=== PATIENT | female | born 1970 | race Caucasian/White ===

== ENCOUNTER 2020-08-22 01:47 | Emergency (ER) | payer OTHER ==
[2020-08-22 01:54] VITALS: BP 125/83; PULSE 101; RESP 24
[2020-08-22 02:02] VITALS: TEMP 100.7
[2020-08-22] MEDS ORDERED: IBUPROFEN 600 MG TAB PO STA (02:13)
--- NOTE | 2020-08-22 02:20 | ED ---
General Adult HPI - General Chief complaint: Shortness of Breath Stated complaint: SOB, fever Time Seen by Provider: 08/22/20 01:55 Source: patient Mode of arrival: ambulatory Limitations: no limitations - History of Present Illness Initial comments: 50-year-old female patient with past medical history significant for hypertension, high cholesterol presents to the emergency department today for evaluation of cough and shortness of breath. Patient's mother was recently visiting from [place] ended up getting sick, going back home, and testing positive for COVID-19. Patient states that she started with a fever on Tuesday. States that since then she has had intermittent fever, diarrhea, and more recently started to cough. Patient states that today she has been more short of breath especially with activity. She is also reporting a "raw" feeling when she breathes. She also reports loss of taste and smell. She states that she was given prescription for azithromycin which she started today. She has been using a proair inhaler which does not seem to help. She was also given a prescription for tessalon perles. She reports fevers as high as 102F. She denies history of smoking or lung conditions. Patient denies any recent rash, abdominal pain, nausea, vomiting, constipation, back pain, numbness, tingling, dizziness, weakness, hematuria, dysuria, urinary urgency, urinary frequency, headache, visual changes, or any other complaints. - Related Data Allergies Allergy/AdvReac Type Severity Reaction Status Date / Time erythromycin base Allergy Unknown Verified 08/22/20 01:54 Childhood Review of Systems ROS Statement: Those systems with pertinent positive or pertinent negative responses have been documented in the HPI. ROS Other: All systems not noted in ROS Statement are negative. Past Medical History Past Medical History: Hyperlipidemia, Hypertension History of Any Multi-Drug Resistant Organisms: None Reported Past Surgical History: Cardiac Ablation, Cholecystectomy, Hysterectomy, Tonsillectomy Past Psychological History: Depression Smoking Status: Never smoker Past Alcohol Use History: Rare Past Drug Use History: None Reported General Exam Limitations: no limitations General appearance: alert, in no apparent distress, other (This is a well- developed, well-nourished adult female patient in no acute distress. Vital signs upon presentation are temperature 90.7F oral, pulse 101, respirations 24, blood pressure 125/83, pulse ox 97% on room air.) Eye exam: Present: normal appearance, PERRL, EOMI. Absent: scleral icterus, conjunctival injection, periorbital swelling ENT exam: Present: normal exam, normal oropharynx, mucous membranes moist Respiratory exam: Present: normal lung sounds bilaterally, respiratory distress (mild), other (Tachypnea. Able to speak full sentences, but obviously short of breath. ). Absent: wheezes, rales, rhonchi, stridor Cardiovascular Exam: Present: regular rate, normal rhythm, normal heart sounds. Absent: systolic murmur, diastolic murmur, rubs, gallop, clicks GI/Abdominal exam: Present: soft, normal bowel sounds. Absent: distended, tenderness, guarding, rebound, rigid Neurological exam: Present: alert, oriented X3, CN II-XII intact Psychiatric exam: Present: normal affect, normal mood Skin exam: Present: warm, dry, intact, normal color. Absent: rash Course Vital Signs 08/22/20 08/22/20 01:51 02:02 Temperature 98.3 F 100.7 F H Pulse Rate 101 H Respiratory 24 Rate Blood Pressure 125/83 O2 Sat by Pulse 97 Oximetry Medical Decision Making - Medical Decision Making 50-year-old female patient presents to the emergency department today for evaluation of fevers, shortness of breath, and cough. Patient has been exposed to COVID-19 and has other family members in the home or sick. Vital signs here do reveal elevated temperature at 100.7. Oxygen saturation is at 97% on room air. At rest she is comfortable and not having any shortness of breath. Chest x-ray is unremarkable. We did discuss likelihood of her having COVID-19. She is aware that she needs to quarantine. She is instructed to continue her home medications. We did discuss return parameters in detail. She is instructed to follow-up with her primary care physician for recheck in 1-2 days. She verbalizes understanding and agrees with this plan. - Radiology Data Radiology results: report reviewed, image reviewed Two-view x-ray of the chest is obtained. Report was reviewed in its entirety. Impression by Dr. Vasques shows no acute findings of the chest. Disposition Clinical Impression: COVID-19, Shortness of breath, Cough Disposition: HOME SELF-CARE Condition: Good Instructions (If sedation given, give patient instructions): Viral Syndrome ( ED), Acute Cough (ED) Additional Instructions: To new medications. Rest. Follow-up with your primary care physician for recheck in 1-2 days. Return to the emergency department immediately for any new, worsening, or concerning symptoms. Is patient prescribed a controlled substance at d/c from ED?: No Referrals: Valentino Coelho DO [Primary Care Provider] - 1-2 days Time of Disposition: 02:54
--- NOTE | 2020-08-22 02:48 | XR ---
EXAM: XR Chest, 1 View CLINICAL HISTORY: ITS.REASON XR Reason: Shortness of breath; Cough; COVID exposure TECHNIQUE: Frontal view of the chest. COMPARISON: No relevant prior studies available. FINDINGS: Lungs: Calcified granuloma right midlung. No airspace consolidation. Pleural space: Unremarkable. No pleural effusion or pneumothorax. Heart: Unremarkable. No cardiomegaly or pulmonary vascular congestion. Mediastinum: Unremarkable. Bones/joints: Unremarkable. IMPRESSION: No acute findings in the chest.
== END 2020-08-22 03:03 | disposition home or self-care (01) ==
LOC: EC 01:47
DX: U07.1 COVID-19 (principal); Z88.1 Allergy status to other antibiotic agents
CPT/HCPCS: 71045; 99285; U0003

== ENCOUNTER 2020-08-23 16:28 | Inpatient (IN) | payer OTHER ==
[2020-08-23] MEDS ORDERED: KETOROLAC 15 MG/ML 1 ML VIAL IVP STA (16:56)
[2020-08-23 17:44] LABS: HCT 43.8 % (34.0-46.0); HGB 14.7 gm/dL (11.4-16.0); MCH 28.5 pg (25.0-35.0); MCHC 33.5 g/dL (31.0-37.0); Mean Platelet Volume 6.3; Platelet Count 216 k/uL (150-450); RBC 5.15 m/uL (3.80-5.40); RDW 13.5 % (11.5-15.5); WBC 1.5 k/uL (3.8-10.6)
[2020-08-23 17:56] LABS: D-Dimer 0.29 mg/L FEU (<0.60); INR 0.9 (<1.2); Partial Thromboplastin Time 25.1 sec (22.0-30.0); Prothrombin Time 9.8 sec (9.0-12.0)
[2020-08-23 18:06] LABS: Band Neutrophils % 1 %; Eosinophils # (M) 0.02 k/uL (0-0.7); Lymphocytes # (M) 0.93 k/uL (1.0-4.8); Monocytes # (M) 0.24 k/uL (0-1.0); Neutrophils % (M) 20 %; Nucleated Red Blood Cells 0 /100 WBC (0-0); Total Cells Counted 100
--- NOTE | 2020-08-23 18:15 | ED ---
General Adult HPI - General Chief complaint: Upper Respiratory Infection Stated complaint: covid symptoms Time Seen by Provider: 08/23/20 16:30 Source: patient Mode of arrival: ambulatory Limitations: no limitations - History of Present Illness Initial comments: Patient is a 50-year-old female with past history of hypertension, hyperlipidemia and obesity who presents to the emergency department with reported generalized weakness, myalgias, fevers, cough and diarrhea. Patient reports that multiple of her family members have the same symptoms and they all tested positive for covid. Positive contacts include her and mother. She states that she has been tested multiple times and has come up negative. Patient was seen in the emergency room yesterday. Had Covid swabs and a chest x-ray performed. She has not received these results yet. She has not taken any Motrin or Tylenol at home for fever control. She is not using the inhaler that she was given she states it does not seem like it was helping her symptoms. Admits to nausea. No vomiting. Denies any chest pain. She does have a pulse ox monitor at home and reports that it has been falling into the 80s. Denies any underlying lung or cardiac issues. Admits to chills without recorded fever as she does not have a thermometer. Denies any abdominal pain. No lower extremity swelling. No other alleviating, precipitating or modifying factors - Related Data Home Medications Medication Instructions Recorded Confirmed Acetaminophen Tab [Tylenol Tab] 1,000 mg PO Q6HR PRN 08/23/20 08/23/20 Albuterol Inhaler [Ventolin Hfa 1 - 2 puff INHALATION RT-Q4H PRN 08/23/20 08/23/20 Inhaler] Azithromycin [Zithromax Z-pack (6 See Taper PO DAILY 08/23/20 08/23/20 tabs)] Benzonatate [Tessalon Perles] 100 mg PO TID PRN 08/23/20 08/23/20 Ezetimibe [Zetia] 10 mg PO HS 08/23/20 08/23/20 Losartan Potassium 100 mg PO HS 08/23/20 08/23/20 Multivitamins, Thera [Multivitamin 1 tab PO DAILY 08/23/20 08/23/20 (formulary)] Rosuvastatin [Crestor] 20 mg PO HS 08/23/20 08/23/20 hydroCHLOROthiazide 25 mg PO HS 08/23/20 08/23/20 Allergies Allergy/AdvReac Type Severity Reaction Status Date / Time erythromycin base Allergy Unknown Verified 08/23/20 20:27 Childhood Review of Systems ROS Statement: Those systems with pertinent positive or pertinent negative responses have been documented in the HPI. ROS Other: All systems not noted in ROS Statement are negative. Past Medical History Past Medical History: Hyperlipidemia, Hypertension History of Any Multi-Drug Resistant Organisms: None Reported Past Surgical History: Cardiac Ablation, Cholecystectomy, Hysterectomy, Tonsillectomy Past Psychological History: Depression Smoking Status: Never smoker Past Alcohol Use History: Rare Past Drug Use History: None Reported - Past Family History Mother Additional Family Medical History / Comment(s): and mother positive for CoVID General Exam Limitations: no limitations General appearance: alert, in no apparent distress Head exam: Present: atraumatic, normocephalic, normal inspection Eye exam: Present: normal appearance, PERRL, EOMI. Absent: scleral icterus, conjunctival injection, periorbital swelling ENT exam: Present: normal exam, mucous membranes moist Neck exam: Present: normal inspection. Absent: tenderness, meningismus, lymphadenopathy Respiratory exam: Present: normal lung sounds bilaterally, other (Tachypnea. slight conversational dyspnea). Absent: respiratory distress, wheezes, rales, rhonchi, stridor Cardiovascular Exam: Present: regular rate, normal rhythm, normal heart sounds. Absent: systolic murmur, diastolic murmur, rubs, gallop, clicks GI/Abdominal exam: Present: soft, normal bowel sounds. Absent: distended, tenderness, guarding, rebound, rigid Extremities exam: Present: normal inspection, full ROM, normal capillary refill. Absent: tenderness, pedal edema, joint swelling, calf tenderness Back exam: Present: normal inspection Neurological exam: Present: alert, oriented X3, CN II-XII intact Psychiatric exam: Present: normal affect, normal mood Skin exam: Present: warm, dry, intact, normal color. Absent: rash Course Vital Signs 08/23/20 08/23/20 08/23/20 16:30 17:33 18:50 Temperature 100.8 F H Pulse Rate 55 L 78 76 Respiratory 20 18 16 Rate Blood Pressure 113/71 122/75 108/76 O2 Sat by Pulse 95 96 97 Oximetry 08/23/20 08/23/20 20:07 21:09 Temperature 99.2 F Pulse Rate 70 78 Respiratory 14 16 Rate Blood Pressure 119/63 140/88 O2 Sat by Pulse 95 97 Oximetry EKG Findings - EKG Comments: EKG Findings:: EKG demonstrates a normal sinus rhythm with a ventricular rate of 76. PA interval 154. QRS 90. QTC 416. No acute ST segment elevations or depressions concerning for ischemic changes Medical Decision Making - Medical Decision Making Upon arrival the patient is placed into room 7. A thorough history and physical exam was performed. Patient is saturating 94% on room air. Patient's chart is reviewed. She was Covid positive yesterday. These results are discussed the patient. As she is reporting to worsening symptoms with low pulse ox readings at home I did recommend laboratory studies. Review of the labs demonstrates a white blood cell count 1.5. Absolute neutrophils is 0.3. Sodium 133. Potassium 3.3. LDH is 636. Reactive protein 13.2. Potassium is replaced. During her stay in the emergency room and she did desaturate down to 87%. She is placed on 2 L of oxygen and saturates 94% without increased worker breathing. I did discuss the diagnosis, differential treatment options. The patient will be admitted to the hospital at this time with Dr. Candelaria to consult. Discussed case with Dr. maritnez who accepted admission. Patient remained in stable condition awaiting a bed on the floor - Lab Data Result diagrams: 08/26/20 06:15 08/26/20 06:15 Lab Results 08/23/20 08/23/20 08/23/20 Range/Units 17:38 17:38 17:38 WBC 1.5 L (3.8-10.6) k/uL RBC 5.15 (3.80-5.40) m/uL Hgb 14.7 (11.4-16.0) gm/dL Hct 43.8 (34.0-46.0) % MCV 85.0 (80.0-100.0) fL MCH 28.5 (25.0-35.0) pg MCHC 33.5 (31.0-37.0) g/dL RDW 13.5 (11.5-15.5) % Plt Count 216 (150-450) k/uL Neutrophils % % Neutrophils % (Manual) 20 % Band Neuts % (Manual) 1 % Lymphocytes % % Lymphocytes % (Manual) 62 % Monocytes % % Monocytes % (Manual) 16 % Eosinophils % % Eosinophils % (Manual) 1 % Basophils % % Neutrophils # (1.3-7.7) k/uL Neutrophils # (Manual) 0.30 L* (1.3-7.7) k/uL Lymphocytes # (1.0-4.8) k/uL Lymphocytes # (Manual) 0.93 L (1.0-4.8) k/uL Monocytes # (0-1.0) k/uL Monocytes # (Manual) 0.24 (0-1.0) k/uL Eosinophils # (0-0.7) k/uL Eosinophils # (Manual) 0.02 (0-0.7) k/uL Basophils # (0-0.2) k/uL Nucleated RBCs 0 (0-0) /100 WBC Differential Comment Manual Slide Review Performed Large Platelets Polychromasia Anisocytosis (manual) PT 9.8 (9.0-12.0) sec INR 0.9 (<1.2) APTT 25.1 (22.0-30.0) sec D-Dimer 0.29 (<0.60) mg/L FEU Sodium 133 L (137-145) mmol/L Potassium 3.3 L (3.5-5.1) mmol/L Chloride 95 L (98-107) mmol/L Carbon Dioxide 28 (22-30) mmol/L Anion Gap 10 mmol/L BUN 24 H (7-17) mg/dL Creatinine 0.88 (0.52-1.04) mg/dL Est GFR (CKD-EPI)AfAm 89 (>60 ml/min/1.73 sqM) Est GFR (CKD-EPI)NonAf 77 (>60 ml/min/1.73 sqM) BUN/Creatinine Ratio (12.00-20.00) Ratio Glucose 134 H (74-99) mg/dL Plasma Lactic Acid Pablo (0.7-2.0) mmol/L Calcium 8.8 (8.4-10.2) mg/dL Magnesium 2.0 (1.6-2.3) mg/dL Ferritin 611.1 H (10.0-291.0) ng/mL Total Bilirubin 0.6 (0.2-1.3) mg/dL AST 59 H (14-36) U/L ALT 53 H (4-34) U/L Alkaline Phosphatase 98 (38-126) U/L Lactate Dehydrogenase 636 H (313-618) U/L Creatine Kinase (26-186) U/L Troponin I (0.000-0.034) ng/mL C-Reactive Protein 13.2 H (<10.0) mg/L Total Protein 7.5 (6.3-8.2) g/dL Albumin 4.2 (3.5-5.0) g/dL Globulin (1.6-3.3) g/dL Albumin/Globulin Ratio (1.60-3.17) g/dL Procalcitonin (0.02-0.09) ng/mL Urine Color Urine Appearance (Clear) Urine pH (5.0-8.0) Ur Specific [place] (1.001-1.035) Urine Protein (Negative) Urine Glucose (UA) (Negative) Urine Ketones (Negative) Urine Blood (Negative) Urine Nitrite (Negative) Urine Bilirubin (Negative) Urine Urobilinogen (<2.0) mg/dL Ur Leukocyte Esterase (Negative) 08/23/20 08/23/20 08/24/20 Range/Units 17:38 17:38 05:46 WBC 0.9 L* (3.8-10.6) k/uL RBC 4.74 (3.80-5.40) m/uL Hgb 13.4 (11.4-16.0) gm/dL Hct 40.7 (34.0-46.0) % MCV 85.7 (80.0-100.0) fL MCH 28.2 (25.0-35.0) pg MCHC 32.9 (31.0-37.0) g/dL RDW 13.5 (11.5-15.5) % Plt Count 194 (150-450) k/uL Neutrophils % % Neutrophils % (Manual) % Band Neuts % (Manual) % Lymphocytes % % Lymphocytes % (Manual) % Monocytes % % Monocytes % (Manual) % Eosinophils % % Eosinophils % (Manual) % Basophils % % Neutrophils # (1.3-7.7) k/uL Neutrophils # (Manual) (1.3-7.7) k/uL Lymphocytes # (1.0-4.8) k/uL Lymphocytes # (Manual) (1.0-4.8) k/uL Monocytes # (0-1.0) k/uL Monocytes # (Manual) (0-1.0) k/uL Eosinophils # (0-0.7) k/uL Eosinophils # (Manual) (0-0.7) k/uL Basophils # (0-0.2) k/uL Nucleated RBCs (0-0) /100 WBC Differential Comment Manual Slide Review Performed Large Platelets Present Polychromasia Present Anisocytosis (manual) Present PT (9.0-12.0) sec INR (<1.2) APTT (22.0-30.0) sec D-Dimer (<0.60) mg/L FEU Sodium (137-145) mmol/L Potassium (3.5-5.1) mmol/L Chloride (98-107) mmol/L Carbon Dioxide (22-30) mmol/L Anion Gap mmol/L BUN (7-17) mg/dL Creatinine (0.52-1.04) mg/dL Est GFR (CKD-EPI)AfAm (>60 ml/min/1.73 sqM) Est GFR (CKD-EPI)NonAf (>60 ml/min/1.73 sqM) BUN/Creatinine Ratio (12.00-20.00) Ratio Glucose (74-99) mg/dL Plasma Lactic Acid Pablo 1.0 (0.7-2.0) mmol/L Calcium (8.4-10.2) mg/dL Magnesium (1.6-2.3) mg/dL Ferritin (10.0-291.0) ng/mL Total Bilirubin (0.2-1.3) mg/dL AST (14-36) U/L ALT (4-34) U/L Alkaline Phosphatase (38-126) U/L Lactate Dehydrogenase (313-618) U/L Creatine Kinase (26-186) U/L Troponin I (0.000-0.034) ng/mL C-Reactive Protein (<10.0) mg/L Total Protein (6.3-8.2) g/dL Albumin (3.5-5.0) g/dL Globulin (1.6-3.3) g/dL Albumin/Globulin Ratio (1.60-3.17) g/dL Procalcitonin 0.05 (0.02-0.09) ng/mL Urine Color Urine Appearance (Clear) Urine pH (5.0-8.0) Ur Specific [place] (1.001-1.035) Urine Protein (Negative) Urine Glucose (UA) (Negative) Urine Ketones (Negative) Urine Blood (Negative) Urine Nitrite (Negative) Urine Bilirubin (Negative) Urine Urobilinogen (<2.0) mg/dL Ur Leukocyte Esterase (Negative) 08/24/20 08/24/20 08/24/20 Range/Units 05:46 05:46 18:07 WBC (3.8-10.6) k/uL RBC (3.80-5.40) m/uL Hgb (11.4-16.0) gm/dL Hct (34.0-46.0) % MCV (80.0-100.0) fL MCH (25.0-35.0) pg MCHC (31.0-37.0) g/dL RDW (11.5-15.5) % Plt Count (150-450) k/uL Neutrophils % % Neutrophils % (Manual) % Band Neuts % (Manual) % Lymphocytes % % Lymphocytes % (Manual) % Monocytes % % Monocytes % (Manual) % Eosinophils % % Eosinophils % (Manual) % Basophils % % Neutrophils # (1.3-7.7) k/uL Neutrophils # (Manual) (1.3-7.7) k/uL Lymphocytes # (1.0-4.8) k/uL Lymphocytes # (Manual) (1.0-4.8) k/uL Monocytes # (0-1.0) k/uL Monocytes # (Manual) (0-1.0) k/uL Eosinophils # (0-0.7) k/uL Eosinophils # (Manual) (0-0.7) k/uL Basophils # (0-0.2) k/uL Nucleated RBCs (0-0) /100 WBC Differential Comment Manual Slide Review Large Platelets Polychromasia Anisocytosis (manual) PT (9.0-12.0) sec INR (<1.2) APTT (22.0-30.0) sec D-Dimer (<0.60) mg/L FEU Sodium 135 (137-145) mmol/L Potassium 3.9 (3.5-5.1) mmol/L Chloride 98 (98-107) mmol/L Carbon Dioxide 28.6 (22-30) mmol/L Anion Gap 8.40 mmol/L BUN 25.0 (7-17) mg/dL Creatinine 0.9 (0.52-1.04) mg/dL Est GFR (CKD-EPI)AfAm 86.4 (>60 ml/min/1.73 sqM) Est GFR (CKD-EPI)NonAf 74.6 (>60 ml/min/1.73 sqM) BUN/Creatinine Ratio 27.78 H (12.00-20.00) Ratio Glucose 149 H (74-99) mg/dL Plasma Lactic Acid Pablo (0.7-2.0) mmol/L Calcium 8.3 L (8.4-10.2) mg/dL Magnesium (1.6-2.3) mg/dL Ferritin (10.0-291.0) ng/mL Total Bilirubin (0.2-1.3) mg/dL AST (14-36) U/L ALT (4-34) U/L Alkaline Phosphatase (38-126) U/L Lactate Dehydrogenase (313-618) U/L Creatine Kinase 111 (26-186) U/L Troponin I (0.000-0.034) ng/mL C-Reactive Protein (<10.0) mg/L Total Protein (6.3-8.2) g/dL Albumin (3.5-5.0) g/dL Globulin (1.6-3.3) g/dL Albumin/Globulin Ratio (1.60-3.17) g/dL Procalcitonin (0.02-0.09) ng/mL Urine Color Yellow Urine Appearance Clear (Clear) Urine pH 6.0 (5.0-8.0) Ur Specific [place] 1.025 (1.001-1.035) Urine Protein Trace H (Negative) Urine Glucose (UA) Negative (Negative) Urine Ketones Trace H (Negative) Urine Blood Negative (Negative) Urine Nitrite Negative (Negative) Urine Bilirubin Negative (Negative) Urine Urobilinogen <2.0 (<2.0) mg/dL Ur Leukocyte Esterase Negative (Negative) 08/25/20 08/25/20 08/25/20 Range/Units 07:03 07:03 07:03 WBC 3.4 L (3.8-10.6) k/uL RBC 4.70 (3.80-5.40) m/uL Hgb 13.4 (11.4-16.0) gm/dL Hct 41.1 (34.0-46.0) % MCV 87.4 (80.0-100.0) fL MCH 28.4 (25.0-35.0) pg MCHC 32.5 (31.0-37.0) g/dL RDW 13.4 (11.5-15.5) % Plt Count 218 (150-450) k/uL Neutrophils % 59 % Neutrophils % (Manual) % Band Neuts % (Manual) % Lymphocytes % 24 % Lymphocytes % (Manual) % Monocytes % 13 % Monocytes % (Manual) % Eosinophils % 0 % Eosinophils % (Manual) % Basophils % 0 % Neutrophils # 2.0 (1.3-7.7) k/uL Neutrophils # (Manual) (1.3-7.7) k/uL Lymphocytes # 0.8 L (1.0-4.8) k/uL Lymphocytes # (Manual) (1.0-4.8) k/uL Monocytes # 0.4 (0-1.0) k/uL Monocytes # (Manual) (0-1.0) k/uL Eosinophils # 0.0 (0-0.7) k/uL Eosinophils # (Manual) (0-0.7) k/uL Basophils # 0.0 (0-0.2) k/uL Nucleated RBCs (0-0) /100 WBC Differential Comment Manual Slide Review Large Platelets Polychromasia Anisocytosis (manual) PT (9.0-12.0) sec INR (<1.2) APTT (22.0-30.0) sec D-Dimer (<0.60) mg/L FEU Sodium 141 (137-145) mmol/L Potassium 3.9 (3.5-5.1) mmol/L Chloride 105 (98-107) mmol/L Carbon Dioxide 27.9 (22-30) mmol/L Anion Gap 8.10 mmol/L BUN 20.0 (7-17) mg/dL Creatinine 0.8 (0.52-1.04) mg/dL Est GFR (CKD-EPI)AfAm 99.6 (>60 ml/min/1.73 sqM) Est GFR (CKD-EPI)NonAf 86.0 (>60 ml/min/1.73 sqM) BUN/Creatinine Ratio 25.00 H (12.00-20.00) Ratio Glucose 116 H (74-99) mg/dL Plasma Lactic Acid Pablo (0.7-2.0) mmol/L Calcium 8.4 L (8.4-10.2) mg/dL Magnesium 1.9 (1.6-2.3) mg/dL Ferritin (10.0-291.0) ng/mL Total Bilirubin 0.3 (0.2-1.3) mg/dL AST 51 H (14-36) U/L ALT 44 (4-34) U/L Alkaline Phosphatase 78 (38-126) U/L Lactate Dehydrogenase (313-618) U/L Creatine Kinase (26-186) U/L Troponin I <0.012 (0.000-0.034) ng/mL C-Reactive Protein (<10.0) mg/L Total Protein 6.2 (6.3-8.2) g/dL Albumin 3.80 (3.5-5.0) g/dL Globulin 2.4 (1.6-3.3) g/dL Albumin/Globulin Ratio 1.58 L (1.60-3.17) g/dL Procalcitonin (0.02-0.09) ng/mL Urine Color Urine Appearance (Clear) Urine pH (5.0-8.0) Ur Specific [place] (1.001-1.035) Urine Protein (Negative) Urine Glucose (UA) (Negative) Urine Ketones (Negative) Urine Blood (Negative) Urine Nitrite (Negative) Urine Bilirubin (Negative) Urine Urobilinogen (<2.0) mg/dL Ur Leukocyte Esterase (Negative) Disposition Clinical Impression: COVID-19, Shortness of breath, Cough Disposition: ADMITTED IP TO THIS [facility] Condition: Serious Is patient prescribed a controlled substance at d/c from ED?: No Decision to Admit Reason: Admit from EC Decision Date: 08/23/20 Decision Time: 19:14
[2020-08-23 18:52] LABS: Albumin 4.2 g/dL (3.5-5.0); C Reactive Protein 13.2 mg/L (<10.0); Calcium 8.8 mg/dL (8.4-10.2); Potassium 3.3 mmol/L (3.5-5.1); Total Bilirubin 0.6 mg/dL (0.2-1.3); Total Protein 7.5 g/dL (6.3-8.2)
[2020-08-23] MEDS ORDERED: ALBUTEROL HFA INHALER INHALATION PRN (19:13)
[2020-08-23] MEDS ORDERED: NALOXONE 0.4 MG/ML 1 ML VIAL IV PRN (19:14)
[2020-08-23] MEDS ORDERED: POTASSIUM CHLORIDE ER 20 MEQ TAB.ER PO STA (20:00)
[2020-08-23] MEDS ORDERED: DEXAMETHASONE SOD PHOSPHATE 4 MG/ML 1 ML VIAL IV STA ×2 (21:55)
[2020-08-23] MEDS: SODIUM CHLORIDE 0.9% 1,000 ML IV SCH (22:52)
[2020-08-23 22:53] LABS: Ferritin 611.1 ng/mL (10.0-291.0)
[2020-08-24] MEDS: ACETAMINOPHEN TAB 325 MG TAB PO PRN (05:24)
[2020-08-24] MEDS: SODIUM CHLORIDE 0.9% 1,000 ML IV SCH ×2 (05:28→17:35)
[2020-08-24 06:36] LABS: HCT 40.7 % (34.0-46.0); HGB 13.4 gm/dL (11.4-16.0); MCH 28.2 pg (25.0-35.0); MCHC 32.9 g/dL (31.0-37.0); MCV 85.7 fL (80.0-100.0); Mean Platelet Volume 6.8; Platelet Count 194 k/uL (150-450); RBC 4.74 m/uL (3.80-5.40); RDW 13.5 % (11.5-15.5)
[2020-08-24 06:45] LABS: WBC 0.9 k/uL (3.8-10.6)
[2020-08-24 07:05] LABS: Anisocytosis (M) Present
[2020-08-24 07:08] LABS: Large Platelets Present
[2020-08-24 07:12] LABS: Polychromasia Present
[2020-08-24 09:32] LABS: African American GFR (CKD) 86.4 (60.0-200.0); Anion Gap 8.4 mmol/L (4.00-12.00); BUN/Creat Ratio 27.78 Ratio (12.00-20.00); Calcium 8.3 mg/dL (8.7-10.3); Carbon Dioxide 28.6 mmol/L (21.6-31.8); Non-African American GFR(CKD) 74.6 (60.0-200.0); Potassium 3.9 mmol/L (3.5-5.5)
[2020-08-24] MEDS: DEXAMETHASONE SOD PHOSPHATE 10 MG/ML 1 ML VIAL IV SCH (11:01)
--- NOTE | 2020-08-24 11:20 | P.CNPUL ---
History of Present Illness Consult date: 08/24/20 Requesting physician: Flora Felipe Reason for consult: dyspnea, cough Chief complaint: Fever, generalized weakness, diarrhea, cough History of present illness: This is a pleasant 50-year-old female patient with a known history of hypertension, hyperlipidemia, obesity. She's been having issues with generalized weakness, myalgias, fever, cough and diarrhea. She been seen in the emergency room on the and subsequently discharged. Both her and mother positive for CoVID 19. Previous test results on her have been negative. She presented to the emergency room again yesterday with similar symptoms or no improvement. She is now found to be Covid 19 positive. T-max 100.8. She is maintaining O2 saturations in the 90s on room air. Chest x-ray reveals no acute abnormalities. White count 10.5. Hemoglobin 14.7. Lymphocytes 0.93. D-dimer 0.29. Sodium 133. Potassium 3.5. Creatinine 0.8. Lactic 1.0. Ferritin 611. AST 59. ALT 53. LDH 636. C-reactive protein 13.2. Pro-calcitonin 0.05. She is seen today in consultation on the regular medical floor. She is currently resting in bed. She continues to have generalized fatigue and weakness. She has a loose nonproductive cough. Currently afebrile. White count 0.9. Hemoglobin 13.4. Sodium 135. Potassium 3.9. Creatinine 0.9. She is currently on Ventolin HFA. Tylenol as needed. She did receive Decadron IV 6 mg yesterday. 0.9 normal saline at 100 ML's per hour. Infectious disease has been consulted. Review of Systems REVIEW OF SYSTEMS: CONSTITUTIONAL: Fatigue, weakness. Denies any recent significant weight loss or weight gain. EYES: Denies change in vision. EARS, NOSE, MOUTH, THROAT: Denies headaches, denies sore throat. CARDIOVASCULAR: Denies chest pain, palpitations or syncopal episodes. RESPIRATORY: Positive for shortness of breath, cough, congestion no hemoptysis. GASTROINTESTINAL: Denies change in appetite, positive for abdominal pain, diarrhea GENITOURINARY: Denies hematuria, denies infections. MUSKULOSKELETAL: Positive for pain, denies swelling. INTEGUMENTARY: Denies rash, denies eczema. NEUROLOGICAL: Denies recent memory loss, no recent seizure activity. PSYCHIATRIC: Denies anxiety, denies depression. HEMATOLOGIC/LYMPHATIC: Denies anemia, denies enlarged lymph nodes. Past Medical History Past Medical History: Hyperlipidemia, Hypertension Additional Past Medical History / Comment(s): had a cardiac ablation for v tach History of Any Multi-Drug Resistant Organisms: None Reported Past Surgical History: Cardiac Ablation, Cholecystectomy, Hysterectomy, Tonsillectomy Past Anesthesia/Blood Transfusion Reactions: No Reported Reaction Past Psychological History: Depression Smoking Status: Never smoker Past Alcohol Use History: Rare Past Drug Use History: None Reported - Past Family History Mother Additional Family Medical History / Comment(s): and mother positive for CoVID Medications and Allergies Home Medications Medication Instructions Recorded Confirmed Type Acetaminophen Tab [Tylenol Tab] 1,000 mg PO Q6HR PRN 08/23/20 08/23/20 History Albuterol Inhaler [Ventolin Hfa 1 - 2 puff INHALATION RT-Q4H PRN 08/23/20 08/23/20 History Inhaler] Azithromycin [Zithromax Z-pack (6 See Taper PO DAILY 08/23/20 08/23/20 History tabs)] Benzonatate [Tessalon Perles] 100 mg PO TID PRN 08/23/20 08/23/20 History Ezetimibe [Zetia] 10 mg PO HS 08/23/20 08/23/20 History Losartan Potassium 100 mg PO HS 08/23/20 08/23/20 History Multivitamins, Thera [Multivitamin 1 tab PO DAILY 08/23/20 08/23/20 History (formulary)] Rosuvastatin [Crestor] 20 mg PO HS 08/23/20 08/23/20 History hydroCHLOROthiazide 25 mg PO HS 08/23/20 08/23/20 History Allergies Allergy/AdvReac Type Severity Reaction Status Date / Time erythromycin base Allergy Unknown Verified 08/23/20 20:27 Childhood Physical Exam Vitals: Vital Signs Temp Pulse Pulse Resp BP BP Pulse Ox 08/24/20 07:00 98.3 F 77 18 98/61 96 08/24/20 03:41 16 08/24/20 02:45 99.6 F 73 16 115/60 95 08/24/20 01:20 16 08/23/20 22:52 16 08/23/20 21:33 98.6 F 71 16 103/56 98 08/23/20 21:09 99.2 F 78 16 140/88 97 08/23/20 20:07 70 14 119/63 95 08/23/20 18:50 76 16 108/76 97 08/23/20 17:33 78 18 122/75 96 08/23/20 16:30 100.8 F H 55 L 20 113/71 95 Intake and Output 08/23/20 08/24/20 08/24/20 22:59 06:59 14:59 Other: Voiding Method Toilet Toilet # Voids 2 # Bowel Movements 1 Weight 136.078 kg GENERAL EXAM: Alert, pleasant 50-year-old female patient, obese, fatigued, weak, fairly comfortable in no apparent distress. HEAD: Normocephalic. EYES: Normal reaction of pupils, equal size. NOSE: Clear with pink turbinates. THROAT: No erythema or exudates. NECK: No masses, no JVD. CHEST: No chest wall deformity. LUNGS: Equal air entry with no crackles, wheeze, rhonchi or dullness. CVS: S1 and S2 normal with no audible murmur, regular rhythm. ABDOMEN: No hepatosplenomegaly, normal bowel sounds, no guarding or rigidity. SPINE: No scoliosis or deformity SKIN: No rashes CENTRAL NERVOUS SYSTEM: No focal deficits, tone is normal in all 4 extremities. EXTREMITIES: There is no peripheral edema. No clubbing, no cyanosis. Peripheral pulses are intact. Results - Laboratory Findings CBC and BMP: 08/24/20 05:46 08/24/20 05:46 PT/INR, D-dimer PT 9.8 sec (9.0-12.0) 08/23/20 17:38 INR 0.9 (<1.2) 08/23/20 17:38 D-Dimer 0.29 mg/L FEU (<0.60) 08/23/20 17:38 Abnormal lab findings: Abnormal Labs 08/23/20 08/23/20 08/24/20 17:38 17:38 05:46 WBC 1.5 L 0.9 L* Neutrophils # (Manual) 0.30 L* Lymphocytes # (Manual) 0.93 L Sodium 133 L Potassium 3.3 L Chloride 95 L BUN 24 H BUN/Creatinine Ratio Glucose 134 H Calcium Ferritin 611.1 H AST 59 H ALT 53 H Lactate Dehydrogenase 636 H C-Reactive Protein 13.2 H 08/24/20 05:46 WBC Neutrophils # (Manual) Lymphocytes # (Manual) Sodium Potassium Chloride BUN BUN/Creatinine Ratio 27.78 H Glucose 149 H Calcium 8.3 L Ferritin AST ALT Lactate Dehydrogenase C-Reactive Protein - Diagnostic Findings Chest x-ray: image reviewed (No acute pulmonary process) Assessment and Plan Assessment: 1 Acute CoVID 19 infection with generalized weakness, fatigue, shortness of b reath, cough, diarrhea 2 Febrile illness secondary to above 3 Elevated inflammatory markers secondary to above 4 Obesity 5 Hypertension 6 Hyperlipidemia 7 History of depression 8 History of cardiac ablation Plan: The patient was seen and evaluated by Dr. Burton Chest x-ray and labs reviewed Continue dexamethasone 6 mg IV daily ID consult pending We'll continue to follow and make further recommendations based on her clinical status I, the cosigning physician, performed a history & physical examination of the patient. Lungs sounds are clear. Maintaining good O2 saturations in the 90s on room air. I discussed the assessment and plan of care with my nurse practition er, Malka Winston. I attest to the above consultation as dictated by her. Time with Patient: Greater than 30
[2020-08-24] MEDS ORDERED: BENZONATATE 100 MG CAP PO PRN (11:40)
[2020-08-24] MEDS ORDERED: Potassium Replacement Protocol 1 EACH MISC MISCELLANE PRN (11:42)
[2020-08-24] MEDS ORDERED: Magnesium Replacement Protocol 1 EACH MISC MISCELLANE PRN (11:42)
[2020-08-24] MEDS: ALBUTEROL HFA INHALER INHALATION SCH ×3 (12:29→20:14)
--- NOTE | 2020-08-24 12:37 | XR ---
EXAMINATION TYPE: XR chest 1V portable DATE OF EXAM: 08/24/2020 Comparison: 08/22/2020 Clinical History: 50-year-old female pneumonia Findings: Heart borderline enlarged. Low lung volumes and cardiovascular markings. Patchy interstitial opacitie s especially in the periphery of the lungs. No pleural effusion. Impression: Unable to exclude patchy peripheral interstitial infiltrates which may be seen with atypical pneumoni as.
--- NOTE | 2020-08-24 12:41 | CT ---
EXAMINATION TYPE: CT chest wo con DATE OF EXAM: 08/24/2020 COMPARISON: Radiograph same day HISTORY: 50-year-old female Shortness of breath and cough. +COVID test TECHNIQUE: Contiguous axial scanning of the chest without IV contrast. Coronal and sagittal reconstru ctions performed. CT DLP: 616.6 mGycm Automated exposure control for dose reduction was used. FINDINGS: Heart normal size without pericardial effusion. Mild proximal LAD coronary artery calcifications are present. Aorta normal caliber with a conventional vessel branching anatomy. Scattered nonenlarged mediastinal lymph nodes are present. Patchy peripheral and peribronchial vascular groundglass opacity. No jeronimo consolidative change. Calcified granuloma periphery of the right mid lung. Tiny hiatal hernia. Couple calcified granulomas within the seen. Cholecystectomy clips. Bones: No osseous destructive process. IMPRESSION: PATCHY PERIPHERAL AND PERIBRONCHOVASCULAR GROUNDGLASS CHANGES WOULD BE COMPATIBLE WITH COVID PNEUMONI A IN THE APPROPRIATE CLINICAL CONTEXT.
[2020-08-24] MEDS: ENOXAPARIN 40 MG/0.4 ML SYRINGE SQ SCH ×2 (13:32→20:19)
[2020-08-24] MEDS: FAMOTIDINE 20 MG TAB PO SCH ×2 (13:33→20:20)
[2020-08-24] MEDS ORDERED: REMDESIVIR (EUA) 200 MG in SODIUM CHLORIDE 0.9% 250 ML IVPB ONE (16:00)
[2020-08-24 18:33] LABS: Appearance,Urine Clear (Clear); Bilirubin,Urine Negative (Negative); Blood,Urine Negative (Negative); Color,Urine Yellow; Glucose,Urine (UA) Negative (Negative); Ketones,Urine Trace (Negative); Leukocyte Esterase,Urine Negative (Negative); Nitrite,Urine Negative (Negative); Protein,Urine Trace (Negative); Specific Gravity,Urine 1.025 (1.001-1.035); Urobilinogen,Urine <2.0 mg/dL (<2.0)
[2020-08-24] MEDS: ZINC SULFATE 220 MG CAP PO SCH (20:20)
[2020-08-24] MEDS: LOSARTAN 50 MG TAB PO SCH (20:20)
[2020-08-24] MEDS ORDERED: MELATONIN 5 MG TABLET PO PRN (20:29)
--- NOTE | 2020-08-24 23:31 | P.CONS ---
History of Present Illness - Reason for Consult Consult date: 08/24/20 Pneumonia Requesting physician: Flora Felipe - Chief Complaint Shortness of breath and cough x one week - History of Present Illness Patient is 50-year-old female with the past medical history significant for hypertension hyperlipidemia presenting to the ER at [facility] with generalized weakness myalgias a fever and cough symptom has been going on for about a week the patient has been did have similar symptoms and tested positive for covid, patient started having increasing shortness of breath that has been getting worse for the last 3 days also complaining of cough which is be motivated density mostly dry in nature no nausea no vomiting no abdominal pain did have diarrhea with multiple loose stools denies having any blood or mucus in the stool and patient did have pulse ox at home and she was washing her O2 sats and her O2 sats were done in the 80s that concerned her and the patient presented to the ER on arrival to the emergency room the patient did have fever 100.8F patient noticed to be leukopenic with a white count of 1.5 ye sterday and 0.9 today, patient did have elevated liver enzymes elevated CRP and normal procalcitonin , patient did have chest x-ray followed by CT of the chest which was H peripheral and peribronchial groundglass changes patient did have a Covid testing admitted to the hospital infectious disease was consulted for further management Review of Systems Positive point has been mentioned in the HPI rest of the systems are negative Past Medical History Past Medical History: Hyperlipidemia, Hypertension Additional Past Medical History / Comment(s): had a cardiac ablation for v tach History of Any Multi-Drug Resistant Organisms: None Reported Past Surgical History: Cardiac Ablation, Cholecystectomy, Hysterectomy, Tonsillectomy Past Anesthesia/Blood Transfusion Reactions: No Reported Reaction Past Psychological History: Depression Smoking Status: Never smoker Past Alcohol Use History: Rare Past Drug Use History: None Reported - Past Family History Mother Additional Family Medical History / Comment(s): and mother positive for CoVID Medications and Allergies Home Medications Medication Instructions Recorded Confirmed Type Acetaminophen Tab [Tylenol Tab] 1,000 mg PO Q6HR PRN 08/23/20 08/23/20 History Albuterol Inhaler [Ventolin Hfa 1 - 2 puff INHALATION RT-Q4H PRN 08/23/20 08/23/20 History Inhaler] Azithromycin [Zithromax Z-pack (6 See Taper PO DAILY 08/23/20 08/23/20 History tabs)] Benzonatate [Tessalon Perles] 100 mg PO TID PRN 08/23/20 08/23/20 History Ezetimibe [Zetia] 10 mg PO HS 08/23/20 08/23/20 History Losartan Potassium 100 mg PO HS 08/23/20 08/23/20 History Multivitamins, Thera [Multivitamin 1 tab PO DAILY 08/23/20 08/23/20 History (formulary)] Rosuvastatin [Crestor] 20 mg PO HS 08/23/20 08/23/20 History hydroCHLOROthiazide 25 mg PO HS 08/23/20 08/23/20 History Allergies Allergy/AdvReac Type Severity Reaction Status Date / Time erythromycin base Allergy Unknown Verified 08/23/20 20:27 Childhood Physical Exam Vitals: Vital Signs Temp Pulse Pulse Resp BP BP Pulse Ox 08/24/20 07:00 98.3 F 77 18 98/61 96 08/24/20 03:41 16 08/24/20 02:45 99.6 F 73 16 115/60 95 08/24/20 01:20 16 08/23/20 22:52 16 08/23/20 21:33 98.6 F 71 16 103/56 98 08/23/20 21:09 99.2 F 78 16 140/88 97 08/23/20 20:07 70 14 119/63 95 08/23/20 18:50 76 16 108/76 97 08/23/20 17:33 78 18 122/75 96 08/23/20 16:30 100.8 F H 55 L 20 113/71 95 Intake and Output 08/24/20 08/24/20 08/24/20 06:59 14:59 22:59 Other: Voiding Method Toilet # Voids 2 # Bowel Movements 1 GENERAL DESCRIPTION: Middle-aged female lying in bed, no distress. No tachypnea or accessory muscle of respiration use. HEENT: Shows Pallor , no scleral icterus. Oral mucous membrane is dry. No pharyngeal erythema or thrush NECK: Trachea central, no thyromegaly. LUNGS: Unlabored breathing. Decreased intensity of breath sounds. No wheeze or crackle. HEART: S1, S2, regular rate and rhythm. No loud murmur ABDOMEN: Soft, no tenderness , guarding or rigidity, no organomegaly EXTREMITIES: No edema of feet. SKIN: No rash, no masses palpable. NEUROLOGICAL: The patient is awake, alert, oriented x3, mood and affect normal. Results CBC & Chem 7: 08/24/20 05:46 08/24/20 05:46 Labs: Abnormal Lab Results - Last 24 Hours (Table) 08/23/20 08/23/20 08/24/20 Range/Units 17:38 17:38 05:46 WBC 1.5 L 0.9 L* (3.8-10.6) k/uL Neutrophils # (Manual) 0.30 L* (1.3-7.7) k/uL Lymphocytes # (Manual) 0.93 L (1.0-4.8) k/uL Sodium 133 L (137-145) mmol/L Potassium 3.3 L (3.5-5.1) mmol/L Chloride 95 L (98-107) mmol/L BUN 24 H (7-17) mg/dL BUN/Creatinine Ratio (12.00-20.00) Ratio Glucose 134 H (74-99) mg/dL Calcium (8.7-10.3) mg/dL Ferritin 611.1 H (10.0-291.0) ng/mL AST 59 H (14-36) U/L ALT 53 H (4-34) U/L Lactate Dehydrogenase 636 H (313-618) U/L C-Reactive Protein 13.2 H (<10.0) mg/L 08/24/20 Range/Units 05:46 WBC (3.8-10.6) k/uL Neutrophils # (Manual) (1.3-7.7) k/uL Lymphocytes # (Manual) (1.0-4.8) k/uL Sodium (137-145) mmol/L Potassium (3.5-5.1) mmol/L Chloride (98-107) mmol/L BUN (7-17) mg/dL BUN/Creatinine Ratio 27.78 H (12.00-20.00) Ratio Glucose 149 H (74-99) mg/dL Calcium 8.3 L (8.7-10.3) mg/dL Ferritin (10.0-291.0) ng/mL AST (14-36) U/L ALT (4-34) U/L Lactate Dehydrogenase (313-618) U/L C-Reactive Protein (<10.0) mg/L Assessment and Plan Assessment: 1-patient presented to hospital with increasing shortness of breath or cough fever and myalgias has been tested positive for Covid In this patient who did have fever and hypoxemia elevated liver enzymes and evidence of groundglass opacities likely representing acute Covid 19 infection (1) Pneumonia due to COVID-19 virus Current Visit: Yes Status: Acute Code(s): U07.1 - COVID-19; J12.89 - OTHER VIRAL PNEUMONIA SNOMED Code(s): 838793288444123395 (2) COVID-19 Current Visit: Yes Status: Acute Code(s): U07.1 - COVID-19 SNOMED Code(s): 213212192 Plan: 1. Patient qualify for Remdisivir on the basis of clinical finding and hypoxemia this was discussed with the pharmacist and the patient was started 2 -patient be continued on dexamethasone Lovenox and zinc sulfate 3- droplet isolation and respiratory support We will follow on clinical condition and cultures to further adjust medication if needed Thank you for this consultation will follow this patient with you
--- NOTE | 2020-08-25 00:55 | HP ---
HISTORY AND PHYSICAL DATE OF SERVICE: 08/24/2020 CHIEF COMPLAINT: Shortness of breath and cough. HISTORY OF PRESENT ILLNESS: This 50-year-old woman who recently moved to the area from [place] with history of hypertension, hyperlipidemia, history of cardiac ablation for ventricular tachycardia, history of cholecystectomy, depression being followed by Dr. Coelho in the outpatient setting was complaining of weakness, fever, myalgias, cough and some diarrhea. The patient apparently had contact with the mother. Her mom who came up from the [place] who was diagnosed with COVID-19 later. The patient's mother was sick with vomiting and some diarrhea after going to a restaurant and subsequently patient also had some cough with whom the family had close contact and the mother probably got the COVID from the [place]astaf[place] in [place], according to the patient where multiple people are being tested positive. Yesterday patient came to the emergency room and COVID swab and chest x-ray was performed and because of the lack of improvement, the patient came back and the COVID test was positive and the patient was admitted for further evaluation and treatment. Chest x-ray showed bilateral interstitial lesion which is confirmed with a CT scan of the chest for which the patient will be a good candidate for remdesivir. At this time, Infectious Disease and Pulmonary consultation have been sought. There is no history of any rigors or chills. No history of headache, loss of consciousness or seizures at this time. The patient had incessant cough. CT scan and chest x-ray were personally reviewed by me. PAST MEDICAL HISTORY: History of hypertension, hyperlipidemia, history of cardiac ablation for ventricular tachycardia, history of cholecystectomy, hysterectomy, depression. MEDICATIONS: Medications prior to admission, home medications are: 1. Hydrochlorothiazide 25 mg at bedtime. 2. Crestor 20 mg at bedtime. 3. Multivitamins 1 p.o. daily. 4. Losartan. 5. Zetia. 6. Tessalon Perles. 7. Zithromax. 8. Ventolin. 9. Tylenol. ALLERGIES: ERYTHROMYCIN. FAMILY HISTORY: History of COVID in the mother and . SOCIAL HISTORY: No history of smoking. No history of alcohol intake. REVIEW OF SYSTEMS: ENT: As mentioned earlier. CARDIOVASCULAR SYSTEM: No angina. RESPIRATORY SYSTEM: As mentioned earlier. GI: As mentioned earlier. : No dysuria. NERVOUS SYSTEM: No numbness or weakness. ALLERGY/IMMUNOLOGY: No asthma or hayfever. MUSCULOSKELETAL: As mentioned earlier. HEMATOLOGY/ONCOLOGY: No history of anemia. ENDOCRINE: No history of diabetes or hypothyroidism. CONSTITUTIONAL: As mentioned earlier. DERMATOLOGY: Negative. RHEUMATOLOGY: Negative. PSYCHIATRY: As mentioned earlier. PHYSICAL EXAMINATION: The patient is alert and oriented x3. Pulse 72, blood pressure 113/67, respiration 18, temperature 99.1, pulse ox 94% on 2 L. HEENT: Conjunctivae normal. NECK: No jugular venous distention. CARDIOVASCULAR: S1, S2 muffled. RESPIRATORY: Breath sounds diminished at the bases. A few scattered rhonchi and crackles. ABDOMEN: Soft, nontender. No mass palpable. LEGS: No edema, no swelling. NERVOUS SYSTEM: Higher function as mentioned earlier. Moves all 4 limbs. No focal deficits. LYMPHATICS: No lymphadenopathy of the neck, axillae or groin. SKIN: No ulcer, rash or bleeding. JOINTS: No active deforming arthropathy. LABS: WBC 1.5 and 0.9 and neutrophils 0.3, lymphocytes 0.93. Sodium 133, potassium 3.3. ASSESSMENT: 1. Acute COVID-19 pneumonia with bilateral interstitial pneumonia with respiratory distress. 2. Leukopenia, neutropenia, lymphopenia. 3. Hyponatremia. 4. Hypokalemia. 5. Elevated AST, ALT. 6. Increased LDH and CRP. 7. Hypertension. 8. Hyperlipidemia. 9. History of cardiac ventricular tachycardia. 10.History of cardiac ablation. 11.History of cholecystectomy. 12.History of hysterectomy. 13.History of depression. 14.Obesity with body mass of 44.3. 15.FULL CODE. RECOMMENDATIONS AND DISCUSSION: This 50-year-old woman who presented with multiple complex medical issues, we will monitor the patient closely. Continue the current medications. Continue symptomatic treatment. Will initiate remdesivir per Infectious Disease. Otherwise, Lovenox, Pepcid, Zinc, empiric antibiotics. The procalcitonin 0.05. Otherwise, the prognosis guarded because of multiple complex medical issues. Repeat labs will be ordered. UA also will be checked. Overall prognosis guarded because of multiple complex medical issues. A copy of dictation forwarded to Dr. Coelho who is the primary physician. The initial EKG shows nonspecific ST-T changes. I would also recommend a set of troponins as well. MMODL / IJN: [id number] / BAMBI
[2020-08-25] MEDS: SODIUM CHLORIDE 0.9% 1,000 ML IV SCH ×3 (07:08→21:37)
[2020-08-25 07:24] LABS: Basophils % (A) 0 %; Eosinophils % (A) 0 %; HCT 41.1 % (34.0-46.0); HGB 13.4 gm/dL (11.4-16.0); Lymphocytes # (A) 0.8 k/uL (1.0-4.8); Lymphocytes % (A) 24 %; MCH 28.4 pg (25.0-35.0); MCHC 32.5 g/dL (31.0-37.0); MCV 87.4 fL (80.0-100.0); Mean Platelet Volume 6.8; Monocytes # (A) 0.4 k/uL (0-1.0); Monocytes % (A) 13 %; Neutrophils % (A) 59 %; Platelet Count 218 k/uL (150-450); RDW 13.4 % (11.5-15.5); WBC 3.4 k/uL (3.8-10.6)
[2020-08-25] MEDS: FAMOTIDINE 20 MG TAB PO SCH ×2 (08:22→21:36)
[2020-08-25] MEDS: MULTIVITAMINS, THERA 1 EACH TAB PO SCH (08:22)
[2020-08-25] MEDS: ENOXAPARIN 40 MG/0.4 ML SYRINGE SQ SCH ×2 (08:22→21:37)
[2020-08-25] MEDS: ZINC SULFATE 220 MG CAP PO SCH ×2 (08:22→21:37)
[2020-08-25] MEDS: DEXAMETHASONE SOD PHOSPHATE 10 MG/ML 1 ML VIAL IV SCH (08:23)
[2020-08-25] MEDS: ALBUTEROL HFA INHALER INHALATION SCH ×4 (08:37→19:43)
[2020-08-25 11:58] LABS: African American GFR (CKD) 99.6 (60.0-200.0); Albumin 3.8 g/dL (3.80-4.90); Albumin/Globulin Ratio 1.58 (1.60-3.17); Anion Gap 8.1 mmol/L (4.00-12.00); Calcium 8.4 mg/dL (8.7-10.3); Carbon Dioxide 27.9 mmol/L (21.6-31.8); Globulin 2.4 g/dL (1.6-3.3); Magnesium 1.9 mg/dL (1.5-2.4); Potassium 3.9 mmol/L (3.5-5.5); Total Bilirubin 0.3 mg/dL (0.3-1.2); Total Protein 6.2 g/dL (6.2-8.2)
--- NOTE | 2020-08-25 15:24 | P.PN ---
Subjective Progress Note Date: 08/25/20 Principal diagnosis: Fever, generalized weakness, diarrhea and cough This is a pleasant 50-year-old female patient with a known history of hypertension, hyperlipidemia, obesity. She's been having issues with generalized weakness, myalgias, fever, cough and diarrhea. She been seen in the emergency room on the and subsequently discharged. Both her and mother positive for CoVID 19. Previous test results on her have been negative. She presented to the emergency room again yesterday with similar symptoms or no improvement. She is now found to be Covid 19 positive. T-max 100.8. She is maintaining O2 saturations in the 90s on room air. Chest x-ray reveals no acute abnormalities. White count 10.5. Hemoglobin 14.7. Lymphocytes 0.93. D-dimer 0.29. Sodium 133. Potassium 3.5. Creatinine 0.8. Lactic 1.0. Ferritin 611. AST 59. ALT 53. LDH 636. C-reactive protein 13.2. Pro-calcitonin 0.05. She is seen today in consultation on the regular medical floor. She is currently resting in bed. She continues to have generalized fatigue and weakness. She has a loose nonproductive cough. Currently afebrile. White count 0.9. Hemoglobin 13.4. Sodium 135. Potassium 3.9. Creatinine 0.9. She is currently on Ventolin HFA. Tylenol as needed. She did receive Decadron IV 6 mg yesterday. 0.9 normal saline at 100 ML's per hour. Infectious disease has been consulted. On 08/25/2020 patient seen in follow-up on a general medical surgical floor. Patient continues to have coughing spells, no phlegm production, continues to feel weak and fatigued, still having some diarrhea, yesterday she was started on Remdesivir, received her loading dose, today she received her second dose of 100 mg IV piggyback, she remains on Lovenox 40 mg twice a day, she is on oral Decadron, Tessalon Perles. No worsening dyspnea, she is on 2 L of oxygen and pulse ox 94-97%, no combative chest pain, T-max in last 24 hours was 99.5. ID service is following. Objective - Vital Signs Vital signs: Vital Signs Temp 99.5 F 08/25/20 14:35 Pulse 86 10/19/20 14:35 Resp 18 08/25/20 14:35 BP 110/54 08/25/20 14:35 Pulse Ox 94 L 08/25/20 14:35 Intake & Output 08/24/20 08/25/20 08/25/20 18:59 06:59 18:59 Intake Total 1080 300 Balance 1080 300 Intake: Oral 1080 300 Other: Voiding Method Toilet # Voids 2 1 3 # Bowel Movements 2 - Exam GENERAL EXAM: Alert, very pleasant, 50-year-old white female, on 2 L oxygen with pulse ox of 94-97% comfortable in no apparent distress. HEAD: Normocephalic/atraumatic. EYES: Normal reaction of pupils, equal size. Conjunctiva pink, sclera white. NOSE: Clear with pink turbinates. THROAT: No erythema or exudates. NECK: No masses, no JVD, no thyroid enlargement, no adenopathy. CHEST: No chest wall deformity. Symmetrical expansion. LUNGS: Equal air entry with no crackles, wheeze, rhonchi or dullness. CVS: Regular rate and rhythm, normal S1 and S2, no gallops, no murmurs, no rubs ABDOMEN: Soft, nontender. No hepatosplenomegaly, normal bowel sounds, no guarding or rigidity. EXTREMITIES: No clubbing, no edema, no cyanosis, 2+ pulses and upper and lower extremities. MUSCULOSKELETAL: Muscle strength and tone normal. SPINE: No scoliosis or deformity SKIN: No rashes CENTRAL NERVOUS SYSTEM: Alert and oriented -3. No focal deficits, tone is normal in all 4 extremities. PSYCHIATRIC: Alert and oriented -3. Appropriate affect. Intact judgment and insight. - Labs CBC & Chem 7: 08/25/20 07:03 08/25/20 07:03 Labs: Abnormal Lab Results - Last 24 Hours (Table) 08/24/20 08/25/20 08/25/20 Range/Units 18:07 07:03 07:03 WBC 3.4 L (3.8-10.6) k/uL Lymphocytes # 0.8 L (1.0-4.8) k/uL BUN/Creatinine Ratio 25.00 H (12.00-20.00) Ratio Glucose 116 H (70-110) mg/dL Calcium 8.4 L (8.7-10.3) mg/dL AST 51 H (13-35) U/L Albumin/Globulin Ratio 1.58 L (1.60-3.17) g/dL Urine Protein Trace H (Negative) Urine Ketones Trace H (Negative) Microbiology - Last 24 Hours (Table) 08/23/20 17:38 Blood Culture - Preliminary Blood No Growth after 24 hours Assessment and Plan Plan: Assessment: 1 Acute CoVID 19 infection with generalized weakness, fatigue, shortness of breath, cough, diarrhea, started on Remdesivir on 08/24/2020 2 Febrile illness secondary to above, improved 3 Elevated inflammatory markers secondary to above 4 Obesity 5 Hypertension 6 Hyperlipidemia 7 History of depression 8 History of cardiac ablation Plan: Continue Remdesivir, Decadron, Lovenox, zinc supplement. Continue to follow inflammatory markers, no worsening dyspnea, still has persistent cough, continue with Tesjoby Smart, we will add Robitussin. Fever has improved. We'll continue to follow I performed a history & physical examination of the patient and discussed their management with my nurse practitioner, Kendra Rock. I reviewed the nurse practitioner's note and agree with the documented findings and plan of care. Lung sounds are positive for diminished breath sounds. The findings and the impression was discussed with the patient. I attest to the documentation by the nurse practitioner. Time with Patient: Less than 30
[2020-08-25] MEDS: REMDESIVIR (EUA) 100 MG in SODIUM CHLORIDE 0.9% 250 ML IVPB SCH (16:13)
[2020-08-25] MEDS: CHOLECALCIFEROL 400 UNIT TAB PO SCH (16:14)
[2020-08-25] MEDS: BENZONATATE 100 MG CAP PO SCH ×2 (16:14→21:37)
[2020-08-25] MEDS: ASCORBIC ACID 500 MG TAB PO SCH (21:36)
[2020-08-25] MEDS: LOSARTAN 50 MG TAB PO SCH (21:37)
--- NOTE | 2020-08-26 01:45 | PN ---
PROGRESS NOTE DATE OF SERVICE: 08/25/2020 REASON FOR FOLLOWUP: Acute COVID-19 pneumonia. INTERVAL HISTORY: Patient is currently afebrile. The patient is feeling better, breathing more comfortably. The patient denies having any chest pain, shortness of breath. Occasional cough. No nausea, no vomiting. No abdominal pain or diarrhea. PHYSICAL EXAMINATION: Blood pressure 106/54 with a pulse of 71, temperature 99. She is 93% on 2 L nasal cannula. General description is a middle-aged female lying in bed in no distress. RESPIRATORY SYSTEM: Unlabored breathing, decreased intense breath sounds. ABDOMEN: Soft. EXTREMITIES: No edema of feet. LABS: Hemoglobin 13.4, white count 3.4, BUN of 20, creatinine 0.8. Blood culture has been negative. DIAGNOSTIC IMPRESSION AND PLAN: Patient with acute COVID-19 pneumonia. Patient is currently responding to dexamethasone, Lovenox and Remdesivir to continue along with respiratory support and droplet isolation. Continue supportive care. MMODL / IJN: [id number] /
[2020-08-26] MEDS ORDERED: ONDANSETRON 4 MG/2 ML VIAL IVP PRN (01:57)
--- NOTE | 2020-08-26 02:26 | PN ---
PROGRESS NOTE DATE OF SERVICE: 08/25/2020 This 50-year-old woman who was admitted with acute COVID-19 pneumonia, bilateral interstitial pneumonia with respiratory distress, started on Remdesivir. The patient closely monitored. Multiple consultants are following the patient including Dr. Schwab and as well as Dr. Georges. PAST MEDICAL HISTORY: Reviewed. REVIEW OF SYSTEMS: CARDIOVASCULAR SYSTEM: No angina. RESPIRATORY SYSTEM: As mentioned earlier. GI: As mentioned earlier. : No dysuria. NERVOUS SYSTEM: No numbness or weakness. CURRENT MEDICATIONS: The current medications are reviewed and include: Tylenol p.r.n., Ventolin, vitamin C, Tessalon, vitamin D3, dexamethasone, Lovenox, Pepcid, Cozaar, melatonin, multivitamins, Narcan, Remdesivir. PHYSICAL EXAMINATION: The patient is alert and oriented x3. Pulse is 71, blood pressure 106/54, respiration 20, temperature normal, pulse ox 93% on 2 L. HEENT: Conjunctivae normal. NECK: No jugular venous distention. CARDIOVASCULAR: S1, S2 muffled. RESPIRATORY: Breath sounds diminished at the bases. A few scattered rhonchi and crackles. ABDOMEN: Soft, nontender. LEGS: No edema, no swelling. NERVOUS SYSTEM: No focal deficits. LABS: WBC 3.4, hemoglobin 13.4. Other labs are noted. Glucose 116. ASSESSMENT: 1. Acute COVID-19 pneumonia with bilateral interstitial pneumonia with acute respiratory distress on Remdesivir. 2. Leukopenia, neutropenia, lymphopenia, possibly secondary to COVID-19. 3. Hyponatremia. 4. Hypokalemia. 5. Elevated AST, ALT. 6. Elevated LDH and CRP. 7. Hypertension. 8. Hyperlipidemia. 9. History of ventricular tachycardia and cardiac ablation. 10.History of cholecystectomy. 11.History of hysterectomy. 12.History of depression. 13.Obesity with body mass index of 44.3. 14.FULL CODE. RECOMMENDATIONS AND DISCUSSION: I recommend to continue current medications, continue symptomatic treatment. Continue with Remdesivir, continue with steroids, continue with Lovenox, continue with Pepcid. Continue with the rest of the medications. Prognosis guarded. Closely follow with multiple consultants. Guarded prognosis. Further recommendations to follow. MMODL / IJN: [id number] /
[2020-08-26 06:40] LABS: Basophils % (A) 0 %; Eosinophils % (A) 0 %; HCT 37.5 % (34.0-46.0); Lymphocytes # (A) 0.7 k/uL (1.0-4.8); Lymphocytes % (A) 24 %; MCH 28.1 pg (25.0-35.0); MCHC 31.9 g/dL (31.0-37.0); MCV 88.1 fL (80.0-100.0); Mean Platelet Volume 6.8; Monocytes # (A) 0.4 k/uL (0-1.0); Monocytes % (A) 14 %; Neutrophils # (A) 1.7 k/uL (1.3-7.7); Neutrophils % (A) 58 %; Platelet Count 205 k/uL (150-450); RBC 4.26 m/uL (3.80-5.40); RDW 13.8 % (11.5-15.5)
[2020-08-26] MEDS: ALBUTEROL HFA INHALER INHALATION SCH ×4 (09:17→20:10)
[2020-08-26] MEDS: DEXAMETHASONE SOD PHOSPHATE 10 MG/ML 1 ML VIAL IV SCH (09:20)
[2020-08-26] MEDS: ENOXAPARIN 40 MG/0.4 ML SYRINGE SQ SCH ×2 (09:20→19:34)
[2020-08-26] MEDS: ASCORBIC ACID 500 MG TAB PO SCH ×2 (09:20→19:35)
[2020-08-26] MEDS: MULTIVITAMINS, THERA 1 EACH TAB PO SCH (09:21)
[2020-08-26] MEDS: CHOLECALCIFEROL 400 UNIT TAB PO SCH (09:21)
[2020-08-26] MEDS: BENZONATATE 100 MG CAP PO SCH ×3 (09:21→19:36)
[2020-08-26] MEDS: FAMOTIDINE 20 MG TAB PO SCH ×2 (09:21→19:34)
[2020-08-26] MEDS: ZINC SULFATE 220 MG CAP PO SCH ×2 (09:22→22:10)
[2020-08-26 09:25] LABS: African American GFR (CKD) 123.2 (60.0-200.0); Albumin 3.4 g/dL (3.80-4.90); Albumin/Globulin Ratio 1.55 (1.60-3.17); Anion Gap 7.7 mmol/L (4.00-12.00); BUN/Creat Ratio 26.67 Ratio (12.00-20.00); Calcium 8.1 mg/dL (8.7-10.3); Carbon Dioxide 27.3 mmol/L (21.6-31.8); Globulin 2.2 g/dL (1.6-3.3); Non-African American GFR(CKD) 106.3 (60.0-200.0); Total Bilirubin 0.4 mg/dL (0.3-1.2); Total Protein 5.6 g/dL (6.2-8.2)
[2020-08-26] MEDS: ACETAMINOPHEN TAB 325 MG TAB PO PRN (09:31)
[2020-08-26] MEDS: SODIUM CHLORIDE 0.9% 1,000 ML IV SCH (10:32)
--- NOTE | 2020-08-26 14:11 | P.PN ---
Subjective Progress Note Date: 08/26/20 Principal diagnosis: Fever, generalized weakness, diarrhea and cough This is a pleasant 50-year-old female patient with a known history of hypertension, hyperlipidemia, obesity. She's been having issues with generalized weakness, myalgias, fever, cough and diarrhea. She been seen in the emergency room on the and subsequently discharged. Both her and mother positive for CoVID 19. Previous test results on her have been negative. She presented to the emergency room again yesterday with similar symptoms or no improvement. She is now found to be Covid 19 positive. T-max 100.8. She is maintaining O2 saturations in the 90s on room air. Chest x-ray reveals no acute abnormalities. White count 10.5. Hemoglobin 14.7. Lymphocytes 0.93. D-dimer 0.29. Sodium 133. Potassium 3.5. Creatinine 0.8. Lactic 1.0. Ferritin 611. AST 59. ALT 53. LDH 636. C-reactive protein 13.2. Pro-calcitonin 0.05. She is seen today in consultation on the regular medical floor. She is currently resting in bed. She continues to have generalized fatigue and weakness. She has a loose nonproductive cough. Currently afebrile. White count 0.9. Hemoglobin 13.4. Sodium 135. Potassium 3.9. Creatinine 0.9. She is currently on Ventolin HFA. Tylenol as needed. She did receive Decadron IV 6 mg yesterday. 0.9 normal saline at 100 ML's per hour. Infectious disease has been consulted. On 08/25/2020 patient seen in follow-up on a general medical surgical floor. Patient continues to have coughing spells, no phlegm production, continues to feel weak and fatigued, still having some diarrhea, yesterday she was started on Remdesivir, received her loading dose, today she received her second dose of 100 mg IV piggyback, she remains on Lovenox 40 mg twice a day, she is on oral Decadron, Tessalon Perles. No worsening dyspnea, she is on 2 L of oxygen and pulse ox 94-97%, no combative chest pain, T-max in last 24 hours was 99.5. ID service is following. On 08/26/2020 patient seen in follow-up on the regular medical surgical floor. Patient is awake and alert, she is resting in bed, breathing comfortably, she is on 4 L of oxygen pulse ox of 90-94%, she still having a low-grade fevers, with T-max of 100.3F in the last 24 hours, yesterday she received her loading dose of Remdesivir, today is her second dose. Vision continues on prophylactic dose of Lovenox at 40 mg twice daily, IV Decadron, and vitamin D, C and zinc supplement. She is breathing much more comfortably today, she denies any chest pain, occasional cough, no abdominal pain or diarrhea. Objective - Vital Signs Vital signs: Vital Signs Temp 97.6 F 08/26/20 12:41 Pulse 84 08/26/20 10:32 Resp 18 08/26/20 10:32 BP 112/56 08/26/20 09:37 Pulse Ox 94 L 08/26/20 10:32 Intake & Output 08/25/20 08/26/20 08/26/20 18:59 06:59 18:59 Other: Voiding Method Toilet Toilet # Voids 3 2 # Bowel Movements 1 - Exam GENERAL EXAM: Alert, very pleasant, 50-year-old white female, on 4 L oxygen with pulse ox of 94% comfortable in no apparent distress. HEAD: Normocephalic/atraumatic. EYES: Normal reaction of pupils, equal size. Conjunctiva pink, sclera white. NOSE: Clear with pink turbinates. THROAT: No erythema or exudates. NECK: No masses, no JVD, no thyroid enlargement, no adenopathy. CHEST: No chest wall deformity. Symmetrical expansion. LUNGS: Equal air entry with no crackles, wheeze, rhonchi or dullness. CVS: Regular rate and rhythm, normal S1 and S2, no gallops, no murmurs, no rubs ABDOMEN: Soft, nontender. No hepatosplenomegaly, normal bowel sounds, no guarding or rigidity. EXTREMITIES: No clubbing, no edema, no cyanosis, 2+ pulses and upper and lower extremities. MUSCULOSKELETAL: Muscle strength and tone normal. SPINE: No scoliosis or deformity SKIN: No rashes CENTRAL NERVOUS SYSTEM: Alert and oriented -3. No focal deficits, tone is normal in all 4 extremities. PSYCHIATRIC: Alert and oriented -3. Appropriate affect. Intact judgment and insight. - Labs CBC & Chem 7: 08/26/20 06:15 08/26/20 06:15 Labs: Abnormal Lab Results - Last 24 Hours (Table) 08/26/20 08/26/20 Range/Units 06:15 06:15 WBC 3.0 L (3.8-10.6) k/uL Lymphocytes # 0.7 L (1.0-4.8) k/uL BUN/Creatinine Ratio 26.67 H (12.00-20.00) Ratio Calcium 8.1 L (8.7-10.3) mg/dL AST 50 H (13-35) U/L Total Protein 5.6 L (6.2-8.2) g/dL Albumin 3.40 L (3.80-4.90) g/dL Albumin/Globulin Ratio 1.55 L (1.60-3.17) g/dL Microbiology - Last 24 Hours (Table) 08/23/20 17:38 Blood Culture - Preliminary Blood No Growth after 48 hours Assessment and Plan Plan: Assessment: 1 Acute CoVID 19 infection with generalized weakness, fatigue, shortness of breath, cough, diarrhea, started on Remdesivir on 08/24/2020 2 Febrile illness secondary to above, improved 3 Elevated inflammatory markers secondary to above 4 Obesity 5 Hypertension 6 Hyperlipidemia 7 History of depression 8 History of cardiac ablation Plan: Continue Remdesivir, Decadron, Lovenox, Pepcid, we'll continue to follow inflammatory markers, cough has improved, no nausea or vomiting, continues to have low-grade fevers, no chest pain, breathing more comfortably, cough is subsided. we'll continue to follow I performed a history & physical examination of the patient and discussed their management with my nurse practitioner, Kendra Rock. I reviewed the nurse practitioner's note and agree with the documented findings and plan of care. Lung sounds are positive for diminished breath sounds. The findings and the impression was discussed with the patient. I attest to the documentation by the nurse practitioner. Time with Patient: Less than 30
[2020-08-26] MEDS: REMDESIVIR (EUA) 100 MG in SODIUM CHLORIDE 0.9% 250 ML IVPB SCH (16:10)
--- NOTE | 2020-08-26 16:52 | P.PN ---
Subjective 50-year-old female is admitted for covid 19 pneumonia. Patient is to have fever patient is presently on 4 L saturating at around 90%, patient is presently on Remdesivir and Decadron and easily gets short of breath with minimal exertion patient is also on vitamin D C and zinc supplementation. Patient is having occasional cough and shortness of breath Constitutional: Denied any fatigue denied any fever. Cardio vascular: denied any chest pain, palpitations Gastrointestinal denied any nausea vomiting Pulmonary: As mentioned in the interval history Neurologic denied any new focal deficits All inpatient medications were reviewed and appropriate changes in these medications as dictated in the interval history and assessment and plan. Objective - Vital Signs Vital signs: Vital Signs Temp 96.8 F L 08/26/20 16:27 Pulse 66 08/26/20 16:27 Resp 20 08/26/20 16:27 BP 103/59 08/26/20 16:27 Pulse Ox 92 L 08/26/20 16:27 Intake & Output 08/25/20 08/26/20 08/26/20 18:59 06:59 18:59 Other: Voiding Method Toilet Bedside Commode # Voids 3 2 2 # Bowel Movements 1 1 - Exam PHYSICAL EXAMINATION: GENERAL: The patient is alert and oriented x3, not in any acute distress. Well developed, well nourished. HEENT: Pupils are round and equally reacting to light. EOMI. No scleral icterus. No conjunctival pallor. Normocephalic, atraumatic. No pharyngeal erythema. No thyromegaly. CARDIOVASCULAR: S1 and S2 present. No murmurs, rubs, or gallops. PULMONARY: Chest is clear to auscultation, no wheezing or crackles. ABDOMEN: Soft, nontender, nondistended, normoactive bowel sounds. No palpable organomegaly. MUSCULOSKELETAL: No joint swelling or deformity. EXTREMITIES: No cyanosis, clubbing, or pedal edema. NEUROLOGICAL: Gross neurological examination did not reveal any focal deficits. SKIN: No rashes. Note: Because of COVID 19 isolation, some of the history and physical exam findings or indirect and obtained from nursing staff, and other physician examinations to avoid unnecessary contact with the patient. - Labs CBC & Chem 7: 08/26/20 06:15 08/26/20 06:15 Labs: Abnormal Lab Results - Last 24 Hours (Table) 08/26/20 08/26/20 Range/Units 06:15 06:15 WBC 3.0 L (3.8-10.6) k/uL Lymphocytes # 0.7 L (1.0-4.8) k/uL BUN/Creatinine Ratio 26.67 H (12.00-20.00) Ratio Calcium 8.1 L (8.7-10.3) mg/dL AST 50 H (13-35) U/L Total Protein 5.6 L (6.2-8.2) g/dL Albumin 3.40 L (3.80-4.90) g/dL Albumin/Globulin Ratio 1.55 L (1.60-3.17) g/dL Microbiology - Last 24 Hours (Table) 08/23/20 17:38 Blood Culture - Preliminary Blood No Growth after 48 hours Assessment and Plan Plan: CoVID 19 infection days on Remdesivir on 08/24/2020 also getting systemic steroids at this time. -Acute respiratory failure secondary to Covid 19 patient will be closely monitored for worsening respiratory failure - Obesity - Hypertension - Hyperlipidemia - History of depression DVT prophylaxis with Lovenox 40 mg twice a day
[2020-08-26] MEDS: LOSARTAN 50 MG TAB PO SCH (19:35)
[2020-08-26] MEDS: MELATONIN 5 MG TABLET PO PRN (22:10)
--- NOTE | 2020-08-26 23:05 | PN ---
PROGRESS NOTE DATE OF SERVICE: 08/26/2020 REASON FOR FOLLOWUP: Acute COVID-19 pneumonia. INTERVAL HISTORY: The patient is currently afebrile. She was complaining of more shortness of breath early this afternoon. Denies having any chest pain. No worsening cough. No vomiting. No abdominal pain or diarrhea. PHYSICAL EXAMINATION: Blood pressure 112/63 with a pulse of 71, temperature 99. She is 92% on 4 L nasal cannula. General description is a middle-aged female lying in bed in no distress. RESPIRATORY SYSTEM: Unlabored breathing with decreased intensity of breath sounds. No wheeze. HEART: S1, S2. Regular rate and rhythm. A ABDOMEN: Soft. No tenderness. T EXTREMITIES: No edema of the feet. LABS: Hemoglobin is 12, white count 3.0, BUN of 16, creatinine 0.6. DIAGNOSTIC IMPRESSION AND PLAN: Patient with acute COVID-19 pneumonia, currently covered with remdesivir, Decadron, Lovenox; to continue along with droplet isolation and monitor her clinical course closely. MMODL / IJN: [id number] /
[2020-08-27 06:42] LABS: HCT 39.2 % (34.0-46.0); HGB 12.5 gm/dL (11.4-16.0); MCH 28.1 pg (25.0-35.0); MCV 87.8 fL (80.0-100.0); Mean Platelet Volume 7.1; Platelet Count 208 k/uL (150-450); RBC 4.46 m/uL (3.80-5.40); RDW 13.7 % (11.5-15.5); WBC 4.1 k/uL (3.8-10.6)
[2020-08-27 07:10] LABS: Neutrophils # (M) 2.87 k/uL (1.3-7.7); Neutrophils % (M) 70 %; Nucleated Red Blood Cells 0 /100 WBC (0-0); Total Cells Counted 100
[2020-08-27] MEDS: ALBUTEROL HFA INHALER INHALATION SCH ×4 (07:55→19:50)
[2020-08-27 08:28] LABS: Lymphocytes # (M) 0.94 k/uL (1.0-4.8); Monocytes # (M) 0.29 k/uL (0-1.0)
--- NOTE | 2020-08-27 08:30 | P.PN ---
Subjective 50-year-old female is admitted for covid 19 pneumonia. Patient is to have fever patient is presently on 4 L saturating at around 90%, patient is presently on Remdesivir and Decadron and easily gets short of breath with minimal exertion patient is also on vitamin D C and zinc supplementation. Patient is having occasional cough and shortness of breath. 08/27/2020 Patient remains in fullness of oxygen with borderline saturations that but patient clinically feels little bit better compared to yesterday. Constitutional: Denied any fatigue denied any fever. Cardio vascular: denied any chest pain, palpitations Gastrointestinal denied any nausea vomiting Pulmonary: As mentioned in the interval history Neurologic denied any new focal deficits All inpatient medications were reviewed and appropriate changes in these medications as dictated in the interval history and assessment and plan. Objective - Vital Signs Vital signs: Vital Signs Temp 97.9 F 08/27/20 07:00 Pulse 67 08/27/20 07:05 Resp 19 08/27/20 07:05 BP 120/61 08/27/20 07:00 Pulse Ox 97 08/27/20 07:00 Intake & Output 08/26/20 08/27/20 08/27/20 18:59 06:59 18:59 Other: Voiding Method Bedside Commode Bedside Commode Bedside Commode # Voids 2 # Bowel Movements 1 - Exam PHYSICAL EXAMINATION: GENERAL: The patient is alert and oriented x3, not in any acute distress. Well developed, well nourished. HEENT: Pupils are round and equally reacting to light. EOMI. No scleral icterus. No conjunctival pallor. Normocephalic, atraumatic. No pharyngeal erythema. No thyromegaly. CARDIOVASCULAR: S1 and S2 present. No murmurs, rubs, or gallops. PULMONARY: Chest is clear to auscultation, no wheezing or crackles. ABDOMEN: Soft, nontender, nondistended, normoactive bowel sounds. No palpable organomegaly. MUSCULOSKELETAL: No joint swelling or deformity. EXTREMITIES: No cyanosis, clubbing, or pedal edema. NEUROLOGICAL: Gross neurological examination did not reveal any focal deficits. SKIN: No rashes. Note: Because of COVID 19 isolation, some of the history and physical exam findings or indirect and obtained from nursing staff, and other physician examinations to avoid unnecessary contact with the patient. - Labs CBC & Chem 7: 08/27/20 05:43 08/26/20 06:15 Labs: Abnormal Lab Results - Last 24 Hours (Table) 08/26/20 08/27/20 Range/Units 06:15 05:43 Lymphocytes # (Manual) 0.94 L (1.0-4.8) k/uL BUN/Creatinine Ratio 26.67 H (12.00-20.00) Ratio Calcium 8.1 L (8.7-10.3) mg/dL AST 50 H (13-35) U/L Total Protein 5.6 L (6.2-8.2) g/dL Albumin 3.40 L (3.80-4.90) g/dL Albumin/Globulin Ratio 1.55 L (1.60-3.17) g/dL Microbiology - Last 24 Hours (Table) 08/23/20 17:38 Blood Culture - Preliminary Blood No Growth after 72 hours Assessment and Plan Plan: CoVID 19 infection days on Remdesivir on 08/24/2020 also getting systemic steroids at this time. -Acute respiratory failure secondary to Covid 19 patient will be closely monitored for worsening respiratory failure - Obesity - Hypertension - Hyperlipidemia - History of depression DVT prophylaxis with Lovenox 40 mg twice a day
[2020-08-27] MEDS: ENOXAPARIN 40 MG/0.4 ML SYRINGE SQ SCH ×2 (09:16→20:58)
[2020-08-27] MEDS: ZINC SULFATE 220 MG CAP PO SCH ×2 (09:16→20:58)
[2020-08-27] MEDS: DEXAMETHASONE SOD PHOSPHATE 10 MG/ML 1 ML VIAL IV SCH (09:16)
[2020-08-27] MEDS: ASCORBIC ACID 500 MG TAB PO SCH ×2 (09:16→20:58)
[2020-08-27] MEDS: FAMOTIDINE 20 MG TAB PO SCH ×2 (09:16→20:58)
[2020-08-27] MEDS: CHOLECALCIFEROL 400 UNIT TAB PO SCH (09:16)
[2020-08-27] MEDS: MULTIVITAMINS, THERA 1 EACH TAB PO SCH (09:16)
[2020-08-27] MEDS: BENZONATATE 100 MG CAP PO SCH ×3 (09:16→20:58)
[2020-08-27 09:24] LABS: African American GFR (CKD) 117.1 (60.0-200.0); Albumin 3.6 g/dL (3.80-4.90); Albumin/Globulin Ratio 1.64 (1.60-3.17); BUN/Creat Ratio 27.14 Ratio (12.00-20.00); C Reactive Protein 5.1 mg/dL (0.0-0.8); Calcium 8.5 mg/dL (8.7-10.3); Globulin 2.2 g/dL (1.6-3.3); Potassium 3.8 mmol/L (3.5-5.5); Total Bilirubin 0.5 mg/dL (0.3-1.2); Total Protein 5.8 g/dL (6.2-8.2)
--- NOTE | 2020-08-27 12:00 | XR ---
EXAMINATION TYPE: XR chest 1V portable DATE OF EXAM: 08/27/2020 COMPARISON: Prior chest x-ray 08/24/2020 HISTORY: Cough, congestion, abnormal chest x-ray follow-up TECHNIQUE: Single frontal view of the chest is obtained. FINDINGS: There is patchy bilateral diffuse airspace disease. No evident pneumothorax or pleural eff usion. Patient is rotated. Cardiomediastinal silhouette, pulmonary vascularity and inderjit not significa ntly changed. IMPRESSION: Bilateral pneumonia.
--- NOTE | 2020-08-27 12:58 | P.PN ---
Subjective Progress Note Date: 08/27/20 Principal diagnosis: Fever, generalized weakness, diarrhea and cough This is a pleasant 50-year-old female patient with a known history of hypertension, hyperlipidemia, obesity. She's been having issues with generalized weakness, myalgias, fever, cough and diarrhea. She been seen in the emergency room on the and subsequently discharged. Both her and mother positive for CoVID 19. Previous test results on her have been negative. She presented to the emergency room again yesterday with similar symptoms or no improvement. She is now found to be Covid 19 positive. T-max 100.8. She is maintaining O2 saturations in the 90s on room air. Chest x-ray reveals no acute abnormalities. White count 10.5. Hemoglobin 14.7. Lymphocytes 0.93. D-dimer 0.29. Sodium 133. Potassium 3.5. Creatinine 0.8. Lactic 1.0. Ferritin 611. AST 59. ALT 53. LDH 636. C-reactive protein 13.2. Pro-calcitonin 0.05. She is seen today in consultation on the regular medical floor. She is currently resting in bed. She continues to have generalized fatigue and weakness. She has a loose nonproductive cough. Currently afebrile. White count 0.9. Hemoglobin 13.4. Sodium 135. Potassium 3.9. Creatinine 0.9. She is currently on Ventolin HFA. Tylenol as needed. She did receive Decadron IV 6 mg yesterday. 0.9 normal saline at 100 ML's per hour. Infectious disease has been consulted. On 08/25/2020 patient seen in follow-up on a general medical surgical floor. Patient continues to have coughing spells, no phlegm production, continues to feel weak and fatigued, still having some diarrhea, yesterday she was started on Remdesivir, received her loading dose, today she received her second dose of 100 mg IV piggyback, she remains on Lovenox 40 mg twice a day, she is on oral Decadron, Tessalon Perles. No worsening dyspnea, she is on 2 L of oxygen and pulse ox 94-97%, no combative chest pain, T-max in last 24 hours was 99.5. ID service is following. On 08/26/2020 patient seen in follow-up on the regular medical surgical floor. Patient is awake and alert, she is resting in bed, breathing comfortably, she is on 4 L of oxygen pulse ox of 90-94%, she still having a low-grade fevers, with T-max of 100.3F in the last 24 hours, yesterday she received her loading dose of Remdesivir, today is her second dose. Vision continues on prophylactic dose of Lovenox at 40 mg twice daily, IV Decadron, and vitamin D, C and zinc supplement. She is breathing much more comfortably today, she denies any chest pain, occasional cough, no abdominal pain or diarrhea. On 08/27/2020 patient seen in follow-up on the regular medical surgical floor. She is awake and alert, in no acute distress, she is on 4 L of oxygen and the pulse ox of 97%, she is on day 3 of Remdesivir treatment. Patient continues to get out of breath quite easily with any minimal exertion, occasional cough, with no phlegm production. Today's chest x-ray shows patchy bilateral diffuse airsp swati disease. These labs have been reviewed, showing white count of 4.1, hemoglobin of 12.5, electrolytes within normal limits, renal profile within normal limits, CRP improving, follow-up LDH is pending, pro-calcitonin was negative at 0.05. Objective - Vital Signs Vital signs: Vital Signs Temp 97.9 F 08/27/20 07:00 Pulse 67 08/27/20 07:05 Resp 19 08/27/20 07:05 BP 120/61 08/27/20 07:00 Pulse Ox 97 08/27/20 07:00 Intake & Output 08/26/20 08/27/20 08/27/20 18:59 06:59 18:59 Other: Voiding Method Bedside Commode Bedside Commode Bedside Commode # Voids 2 # Bowel Movements 1 - Exam GENERAL EXAM: Alert, very pleasant, 50-year-old white female, on 4 L oxygen with pulse ox of 97% comfortable in no apparent distress. HEAD: Normocephalic/atraumatic. EYES: Normal reaction of pupils, equal size. Conjunctiva pink, sclera white. NOSE: Clear with pink turbinates. THROAT: No erythema or exudates. NECK: No masses, no JVD, no thyroid enlargement, no adenopathy. CHEST: No chest wall deformity. Symmetrical expansion. LUNGS: Equal air entry with no crackles, wheeze, rhonchi or dullness. CVS: Regular rate and rhythm, normal S1 and S2, no gallops, no murmurs, no rubs ABDOMEN: Soft, nontender. No hepatosplenomegaly, normal bowel sounds, no gu arding or rigidity. EXTREMITIES: No clubbing, no edema, no cyanosis, 2+ pulses and upper and lower e xtremities. MUSCULOSKELETAL: Muscle strength and tone normal. SPINE: No scoliosis or deformity SKIN: No rashes CENTRAL NERVOUS SYSTEM: Alert and oriented -3. No focal deficits, tone is normal in all 4 extremities. PSYCHIATRIC: Alert and oriented -3. Appropriate affect. Intact judgment and insight. - Labs CBC & Chem 7: 08/27/20 05:43 08/27/20 05:43 Labs: Abnormal Lab Results - Last 24 Hours (Table) 08/27/20 08/27/20 Range/Units 05:43 05:43 Lymphocytes # (Manual) 0.94 L (1.0-4.8) k/uL BUN/Creatinine Ratio 27.14 H (12.00-20.00) Ratio Glucose 115 H (70-110) mg/dL Calcium 8.5 L (8.7-10.3) mg/dL AST 46 H (13-35) U/L ALT 46 H (8-44) U/L C-Reactive Protein 5.1 H (0.0-0.8) mg/dL Total Protein 5.8 L (6.2-8.2) g/dL Albumin 3.60 L (3.80-4.90) g/dL Microbiology - Last 24 Hours (Table) 08/23/20 17:38 Blood Culture - Preliminary Blood No Growth after 72 hours Assessment and Plan Plan: Assessment: 1 Acute CoVID 19 infection with generalized weakness, fatigue, shortness of breath, cough, diarrhea, started on Remdesivir on 08/24/2020 2 Febrile illness secondary to above, improved 3 Elevated inflammatory markers secondary to above 4 Obesity 5 Hypertension 6 Hyperlipidemia 7 History of depression 8 History of cardiac ablation Plan: Today's chest x-ray has been reviewed showing patchy airspace disease and bilateral lungs, with slight worsening. Clinically patient is stable, mild cough, still has exertional dyspnea, no nausea or vomiting. Will continue with Remdesivir, decadron, Lovenox, will follow I performed a history & physical examination of the patient and discussed their management with my nurse practitioner, Kendra Rock. I reviewed the nurse practitioner's note and agree with the documented findings and plan of care. Lung sounds are positive for diminished breath sounds. The findings and the impression was discussed with the patient. I attest to the documentation by the nurse practitioner. Time with Patient: Less than 30
[2020-08-27] MEDS: REMDESIVIR (EUA) 100 MG in SODIUM CHLORIDE 0.9% 250 ML IVPB SCH (17:53)
[2020-08-27] MEDS: LOSARTAN 50 MG TAB PO SCH (20:58)
[2020-08-28] MEDS: MELATONIN 5 MG TABLET PO PRN (02:43)
[2020-08-28] MEDS: ALBUTEROL HFA INHALER INHALATION SCH ×4 (09:12→20:58)
[2020-08-28] MEDS: DEXAMETHASONE SOD PHOSPHATE 10 MG/ML 1 ML VIAL IV SCH (09:58)
[2020-08-28] MEDS: ZINC SULFATE 220 MG CAP PO SCH ×2 (09:58→20:54)
[2020-08-28] MEDS: ASCORBIC ACID 500 MG TAB PO SCH ×2 (09:58→20:54)
[2020-08-28] MEDS: MULTIVITAMINS, THERA 1 EACH TAB PO SCH (09:58)
[2020-08-28] MEDS: BENZONATATE 100 MG CAP PO SCH ×3 (09:58→20:54)
[2020-08-28] MEDS: FAMOTIDINE 20 MG TAB PO SCH ×2 (09:58→20:53)
[2020-08-28] MEDS: CHOLECALCIFEROL 400 UNIT TAB PO SCH (09:58)
[2020-08-28] MEDS: ENOXAPARIN 40 MG/0.4 ML SYRINGE SQ SCH ×2 (09:58→20:53)
--- NOTE | 2020-08-28 12:11 | P.PN ---
Subjective 50-year-old female is admitted for covid 19 pneumonia. Patient is to have fever patient is presently on 4 L saturating at around 90%, patient is presently on Remdesivir and Decadron and easily gets short of breath with minimal exertion patient is also on vitamin D C and zinc supplementation. Patient is having occasional cough and shortness of breath. 08/27/2020 Patient remains in fullness of oxygen with borderline saturations that but patient clinically feels little bit better compared to yesterday. 08/28/2020 Patient the is saturating better compared to yesterday we will try to wean her off oxygen patient may be able to go in a day or 2. Patient is feeling better does have some crackles on lung exam Constitutional: Denied any fatigue denied any fever. Cardio vascular: denied any chest pain, palpitations Gastrointestinal denied any nausea vomiting Pulmonary: As mentioned in the interval history Neurologic denied any new focal deficits All inpatient medications were reviewed and appropriate changes in these medications as dictated in the interval history and assessment and plan. Objective - Vital Signs Vital signs: Vital Signs Temp 97.6 F 08/28/20 07:00 Pulse 92 08/28/20 08:00 Resp 20 08/28/20 08:00 BP 119/73 08/28/20 07:00 Pulse Ox 96 08/28/20 07:00 Intake & Output 08/27/20 08/28/20 08/28/20 18:59 06:59 18:59 Other: Voiding Method Bedside Commode Bedside Commode Bedside Commode # Voids 3 1 1 - Exam PHYSICAL EXAMINATION: GENERAL: The patient is alert and oriented x3, not in any acute distress. Well developed, well nourished. HEENT: Pupils are round and equally reacting to light. EOMI. No scleral icterus. No conjunctival pallor. Normocephalic, atraumatic. No pharyngeal erythema. No thyromegaly. CARDIOVASCULAR: S1 and S2 present. No murmurs, rubs, or gallops. PULMONARY: Mild crackles bilaterally ABDOMEN: Soft, nontender, nondistended, normoactive bowel sounds. No palpable organomegaly. MUSCULOSKELETAL: No joint swelling or deformity. EXTREMITIES: No cyanosis, clubbing, or pedal edema. NEUROLOGICAL: Gross neurological examination did not reveal any focal deficits. SKIN: No rashes. Note: Because of COVID 19 isolation, some of the history and physical exam findings or indirect and obtained from nursing staff, and other physician ex aminations to avoid unnecessary contact with the patient. - Labs CBC & Chem 7: 08/27/20 05:43 08/27/20 05:43 Labs: Abnormal Lab Results - Last 24 Hours (Table) 08/27/20 Range/Units 13:09 C-Reactive Protein 40.8 H (<10.0) mg/L Microbiology - Last 24 Hours (Table) 08/23/20 17:38 Blood Culture - Preliminary Blood No Growth after 96 hours Assessment and Plan Plan: CoVID 19 infection days on Remdesivir on 08/24/2020 also getting systemic steroids at this time., Patient appeared to be improving at this time. -Acute respiratory failure secondary to Covid 19 patient will be closely monitored for worsening respiratory failure - Obesity - Hypertension - Hyperlipidemia - History of depression DVT prophylaxis with Lovenox 40 mg twice a day
[2020-08-28 14:08] VITALS: BMI 44.3
--- NOTE | 2020-08-28 15:47 | PN ---
PROGRESS NOTE This is a patient who was again seen on August 28, 2020. She is a 50-year-old female admitted with a diagnosis of COVID-19 pneumonitis. Today is her last day with Remdesivir. She gets her fifth da of Remdesivir at 100 mg IV piggyback. Currently, the patient is awake and alert. She is in no acute distress. She is down to 3 L nasal cannula. She is feeling much better according to the nurse. She denies any chest pain or chest pressure. Denies any fever or chills. There is no nausea, vomiting or diarrhea. Her chest x-ray still shows bilateral patchy multifocal pneumonia Current vital signs are reviewed. Temperature is 97.7, heart rate 71, respiratory rate 22, blood pressure 126/60 mean 82, 4 L saturations between 90%-96%. Appears in no acute distress. HEENT: Examination is grossly unremarkable. NECK: Supple, full range of motion. No adenopathy. Neck veins are flat. CARDIOVASCULAR: Examination reveals regular rhythm and rate. S1, S2 normal. Heart rate 71. No murmur. LUNGS: Reveal diffuse coarse bilateral rhonchi and crackles. No wheezes. Breath sounds equal but diminished throughout. ABDOMEN: Obese. Bowel sounds are heard. EXTREMITIES: Intact. No cyanosis, clubbing, or edema. SKIN: Without rash. NEUROLOGIC: Examination brief but nonfocal. LABS: Reviewed. Nothing new from today. Microbiology is negative. Chest x-ray from August 27, reveals bilateral pneumonia. Medications are reviewed. She is on all appropriate medications. From the COVID-19 standpoint, she is on albuterol inhaler, Decadron, melatonin, Remdesivir, and zinc. ASSESSMENT: 1. Acute COVID-19 pneumonitis, with diffuse bilateral pneumonia, status post 4+ days of Remdesivir. 2. Febrile illness, secondary to #1. 3. Elevated inflammatory markers, secondary to COVID-19 infection. 4. Obesity. 5. Hypertension. 6. Hyperlipidemia. 7. History of depression. 8. History of cardiac ablation. PLAN: Currently, the patient is doing well. Today is her last day of Remdesivir. It is 100 mg. Her other medications are appropriate. We will continue to follow. No additional recommendations are made. Prognosis is guarded. MMODL / IJN: [id number] /
[2020-08-28] MEDS: REMDESIVIR (EUA) 100 MG in SODIUM CHLORIDE 0.9% 250 ML IVPB SCH (16:26)
[2020-08-28] MEDS: LOSARTAN 50 MG TAB PO SCH (20:54)
[2020-08-29] MEDS: ALBUTEROL HFA INHALER INHALATION SCH ×3 (07:20→15:42)
[2020-08-29] MEDS: ASCORBIC ACID 500 MG TAB PO SCH (07:26)
[2020-08-29] MEDS: MULTIVITAMINS, THERA 1 EACH TAB PO SCH (07:27)
[2020-08-29] MEDS: CHOLECALCIFEROL 400 UNIT TAB PO SCH (07:27)
[2020-08-29] MEDS: FAMOTIDINE 20 MG TAB PO SCH (07:27)
[2020-08-29] MEDS: BENZONATATE 100 MG CAP PO SCH (07:27)
[2020-08-29] MEDS: ZINC SULFATE 220 MG CAP PO SCH (07:28)
[2020-08-29] MEDS: ENOXAPARIN 40 MG/0.4 ML SYRINGE SQ SCH (07:28)
[2020-08-29] MEDS: DEXAMETHASONE SOD PHOSPHATE 10 MG/ML 1 ML VIAL IV SCH (07:30)
[2020-08-29 07:35] VITALS: RESP 18
--- NOTE | 2020-08-29 12:47 | P.PN ---
Subjective Progress Note Date: 08/29/20 Principal diagnosis: Acute CoVID 19 infection This is a pleasant 50-year-old female patient with a known history of hypertension, hyperlipidemia, obesity. She's been having issues with generalized weakness, myalgias, fever, cough and diarrhea. She been seen in the emergency room on the and subsequently discharged. Both her and mother positive for CoVID 19. Previous test results on her have been negative. She presented to the emergency room again yesterday with similar symptoms or no improvement. She is now found to be Covid 19 positive. T-max 100.8. She is maintaining O2 saturations in the 90s on room air. Chest x-ray reveals no acute abnormalities. White count 10.5. Hemoglobin 14.7. Lymphocytes 0.93. D-dimer 0.29. Sodium 133. Potassium 3.5. Creatinine 0.8. Lactic 1.0. Ferritin 611. AST 59. ALT 53. LDH 636. C-reactive protein 13.2. Pro-calcitonin 0.05. She is seen today in consultation on the regular medical floor. She is currently resting in bed. She continues to have generalized fatigue and weakness. She has a loose nonproductive cough. Currently afebrile. White count 0.9. Hemoglobin 13.4. Sodium 135. Potassium 3.9. Creatinine 0.9. She is currently on Ventolin HFA. Tylenol as needed. She did receive Decadron IV 6 mg yesterday. 0.9 normal saline at 100 ML's per hour. Infectious disease has been consulted. On 08/25/2020 patient seen in follow-up on a general medical surgical floor. Patient continues to have coughing spells, no phlegm production, continues to feel weak and fatigued, still having some diarrhea, yesterday she was started on Remdesivir, received her loading dose, today she received her second dose of 100 mg IV piggyback, she remains on Lovenox 40 mg twice a day, she is on oral Decadron, Tessalon Perles. No worsening dyspnea, she is on 2 L of oxygen and pulse ox 94-97%, no combative chest pain, T-max in last 24 hours was 99.5. ID service is following. On 08/26/2020 patient seen in follow-up on the regular medical surgical floor. Patient is awake and alert, she is resting in bed, breathing comfortably, she is on 4 L of oxygen pulse ox of 90-94%, she still having a low-grade fevers, with T-max of 100.3F in the last 24 hours, yesterday she received her loading dose of Remdesivir, today is her second dose. Vision continues on prophylactic dose of Lovenox at 40 mg twice daily, IV Decadron, and vitamin D, C and zinc supplement. She is breathing much more comfortably today, she denies any chest pain, occasional cough, no abdominal pain or diarrhea. On 08/27/2020 patient seen in follow-up on the regular medical surgical floor. She is awake and alert, in no acute distress, she is on 4 L of oxygen and the pulse ox of 97%, she is on day 3 of Remdesivir treatment. Patient continues to get out of breath quite easily with any minimal exertion, occasional cough, with no phlegm production. Today's chest x-ray shows patchy bilateral diffuse airspace disease. These labs have been reviewed, showing white count of 4.1, hemoglobin of 12.5, electrolytes within normal limits, renal profile within normal limits, CRP improving, follow-up LDH is pending, pro-calcitonin was negative at 0.05. The patient is seen today 08/29/2020 in follow-up on the regular medical floor. She is awake and alert in no acute distress. Currently sitting up in a chair at the bedside. She denies any worsening shortness of breath, cough or congestion. No fever, chills or night sweats. She is maintaining O2 saturations at 91% on room air. She's afebrile. Hemodynamically stable. She has completed her course of Remdesivir. She remains on dexamethasone, vitamin C, vitamin D, Pepci d, zinc. She is anxious to go home. Objective - Vital Signs Vital signs: Vital Signs Temp 97.5 F L 08/29/20 07:00 Pulse 65 08/29/20 07:00 Resp 18 08/29/20 08:00 BP 121/69 08/29/20 07:00 Pulse Ox 91 L 08/29/20 12:22 Intake & Output 08/28/20 08/29/20 08/29/20 18:59 06:59 18:59 Intake Total 300 Balance 300 Weight 136.078 kg Intake: Oral 300 Other: Voiding Method Bedside Commode Bedside Commode Bedside Commode # Voids 2 2 - Exam GENERAL EXAM: Alert, very pleasant, 50-year-old female patient, on room air, comfortable in no apparent distress. HEAD: Normocephalic/atraumatic. EYES: Normal reaction of pupils, equal size. Conjunctiva pink, sclera white. NOSE: Clear with pink turbinates. THROAT: No erythema or exudates. NECK: No masses, no JVD, no thyroid enlargement, no adenopathy. CHEST: No chest wall deformity. Symmetrical expansion. LUNGS: Equal air entry with few scattered rhonchi. CVS: Regular rate and rhythm, normal S1 and S2, no gallops, no murmurs, no rubs ABDOMEN: Soft, nontender. No hepatosplenomegaly, normal bowel sounds, no guarding or rigidity. EXTREMITIES: No clubbing, no edema, no cyanosis, 2+ pulses and upper and lower extremities. MUSCULOSKELETAL: Muscle strength and tone normal. SPINE: No scoliosis or deformity SKIN: No rashes CENTRAL NERVOUS SYSTEM: No focal deficits, tone is normal in all 4 extremities. PSYCHIATRIC: Alert and oriented -3. Appropriate affect. Intact judgment and insight. - Labs CBC & Chem 7: 08/27/20 05:43 08/27/20 05:43 Labs: Microbiology - Last 24 Hours (Table) 08/23/20 17:38 Blood Culture - Preliminary Blood No Growth after 120 hours Assessment and Plan Assessment: 1 Acute CoVID 19 infection with generalized weakness, fatigue, shortness of kimberly ath, cough, diarrhea 2 Febrile illness secondary to above 3 Elevated inflammatory markers secondary to above 4 Obesity 5 Hypertension 6 Hyperlipidemia 7 History of depression 8 History of cardiac ablation Plan: The patient was seen and evaluated by Dr. Schwab Cleared for discharge from the pulmonary standpoint I, the cosigning physician, performed a history & physical examination of the patient. Lungs sounds with few scattered rhonchi. Maintaining good O2 saturations in the 90s on room air. I discussed the assessment and plan of care with my nurse practitioner, Malka Winston. I attest to the above consultation as dictated by her.
[2020-08-29 14:42] VITALS: BP 131/64; PULSE 57; TEMP 98.1
--- NOTE | 2020-08-29 16:20 | P.DS ---
Providers Date of admission: 08/25/20 09:32 Attending physician: Flora Felipe Consults: 08/23/20 19:18 Consult Physician Urgent Consulting Provider: Yasmeen Georges Consult Reason/Comments: acute respiratory insuff, covid positive Do you want consulting provider notified?: Yes 08/23/20 19:32 Consult Physician Urgent Consulting Provider: Mejia Burton Consult Reason/Comments: acute hypoxic resp failure, covid positive Do you want consulting provider notified?: Yes Primary care physician: [facility] Course: 50-year-old female is admitted for covid 19 pneumonia. Patient is to have fever patient is presently on 4 L saturating at around 90%, patient is presently on Remdesivir and Decadron and easily gets short of breath with minimal exertion patient is also on vitamin D C and zinc supplementation. Patient is having occasional cough and shortness of breath. 08/27/2020 Patient remains in fullness of oxygen with borderline saturations that but patient clinically feels little bit better compared to yesterday. 08/28/2020 Patient the is saturating better compared to yesterday we will try to wean her off oxygen patient may be able to go in a day or 2. Patient is feeling better d oes have some crackles on lung exam 08/29/2020 Patient is clinically doing well off oxygen patient will be discharged today on 3 more days of Decadron. PHYSICAL EXAMINATION: GENERAL: The patient is alert and oriented x3, not in any acute distress. Well developed, well nourished. HEENT: Pupils are round and equally reacting to light. EOMI. No scleral icterus. No conjunctival pallor. Normocephalic, atraumatic. No pharyngeal erythema. No thyromegaly. CARDIOVASCULAR: S1 and S2 present. No murmurs, rubs, or gallops. PULMONARY: Chest is clear to auscultation, no wheezing or crackles. ABDOMEN: Soft, nontender, nondistended, normoactive bowel sounds. No palpable organomegaly. MUSCULOSKELETAL: No joint swelling or deformity. EXTREMITIES: No cyanosis, clubbing, or pedal edema. NEUROLOGICAL: Gross neurological examination did not reveal any focal deficits. SKIN: No rashes. Note: Because of COVID 19 isolation, some of the history and physical exam findings or indirect and obtained from nursing staff, and other physician examinations to avoid unnecessary contact with the patient. Assessment and Plan Plan: CoVID 19 infection patient was on on Remdesivir on 08/24/2020 also getting systemic steroids . -Acute respiratory failure secondary to Covid 19 - Obesity - Hypertension - Hyperlipidemia - History of depression Patient Condition at Discharge: Serious Plan - Discharge Summary Discharge Rx Participant: No New Discharge Prescriptions: New Dexamethasone [Decadron] 4 mg PO DAILY #3 tablet Zinc Sulfate [Orazinc] 220 mg PO BID #30 cap Famotidine [Pepcid] 20 mg PO BID #10 tab Continue Rosuvastatin [Crestor] 20 mg PO HS Multivitamins, Thera [Multivitamin (formulary)] 1 tab PO DAILY Acetaminophen Tab [Tylenol] 1,000 mg PO Q6HR PRN PRN Reason: Pain Or Fever > 100.5 Losartan Potassium 100 mg PO HS Ezetimibe [Zetia] 10 mg PO HS Benzonatate [Tessalon Perles] 100 mg PO TID PRN PRN Reason: Cough Albuterol Inhaler [Ventolin Hfa Inhaler] 1 - 2 puff INHALATION RT-Q4H PRN PRN Reason: Shortness Of Breath Discontinued hydroCHLOROthiazide 25 mg PO HS Azithromycin [Zithromax Z-pack (6 tabs)] See Taper PO DAILY Discharge Medication List Acetaminophen Tab [Tylenol] 1,000 mg PO Q6HR PRN 08/23/20 [History] Albuterol Inhaler [Ventolin Hfa Inhaler] 1 - 2 puff INHALATION RT-Q4H PRN 08/23 [History] Benzonatate [Tessalon Perles] 100 mg PO TID PRN 08/23/20 [History] Ezetimibe [Zetia] 10 mg PO HS 08/23/20 [History] Losartan Potassium 100 mg PO HS 08/23/20 [History] Multivitamins, Thera [Multivitamin (formulary)] 1 tab PO DAILY 08/23/20 [History] Rosuvastatin [Crestor] 20 mg PO HS 08/23/20 [History] Dexamethasone [Decadron] 4 mg PO DAILY #3 tablet 08/29/20 [Rx] Famotidine [Pepcid] 20 mg PO BID #10 tab 08/29/20 [Rx] Zinc Sulfate [Orazinc] 220 mg PO BID #30 cap 10/23/20 [Rx] Follow up Appointment(s)/Referral(s): Valentino Coelho DO [Primary Care Provider] - 1-2 days (office closed at time of discharge. Please call to make appointment) Patient Instructions/Handouts: Viral Pneumonia (DC), SARS (Severe Acute Respiratory Syndrome) (DC) Discharge Disposition: HOME SELF-CARE
[2020-08-30 19:39] LABS: LD Isoenzymes 1 12 % (19-38); LD Isoenzymes 2 29 % (30-43); LD Isoenzymes 3 31 % (16-26); LD Isoenzymes 4 16 % (3-12); LD Isoenzymes 5 12 % (3-14); Lactacte Dehydrogenase(LD) ISO 362 U/L (120-250)
== END 2020-08-29 16:20 | disposition home or self-care (01) | DRG 177 ==
LOC: EC 16:28 → 4SSUR 19:19 → OBSVTOIN 08-25 09:32
PROVIDERS: ADMIT Hospitalist; ATTEND Hospitalist
DX: U07.1 COVID-19 (principal); J12.89 Other viral pneumonia; J96.01 Acute respiratory failure with hypoxia; E87.1 Hypo-osmolality and hyponatremia; Z68.41 Body mass index [BMI] 40.0-44.9, adult; E66.9 Obesity, unspecified; D72.810 Lymphocytopenia; E78.5 Hyperlipidemia, unspecified; E87.6 Hypokalemia; I10 Essential (primary) hypertension; F32.9 Major depressive disorder, single episode, unspecified; D70.9 Neutropenia, unspecified; Z90.710 Acquired absence of both cervix and uterus; Z90.49 Acquired absence of other specified parts of digestive tract; Z86.79 Personal history of other diseases of the circulatory system; Z79.899 Other long term (current) drug therapy; Z88.1 Allergy status to other antibiotic agents; Z90.89 Acquired absence of other organs; Z83.1 Family history of other infectious and parasitic diseases
CPT/HCPCS: 36415; 71045; 71250; 80048; 80053; 81003; 82550; 82728; 83605; 83615; 83625; 83735; 84145; 84484; 85025; 85379; 85610; 85730; 86140; 87040; 93005; 94640; 96374; 99285

== ENCOUNTER → 2021-11-19 | Outpatient (CLI) | payer OTHER ==
--- NOTE | 2021-11-23 13:55 | MM ---
Reason for exam: screening (asymptomatic). History: Patient is postmenopausal. Family history of breast cancer in cousin at age 40 and breast cancer in maternal aunt at age 70. Physical Findings: A clinical breast exam by your physician is recommended on an annual basis and results should be correlated with mammographic findings. MG 3D Screening Mammo W/Cad Bilateral CC and MLO view(s) were taken. No prior studies available for comparison. The breast tissue is heterogeneously dense. This may lower the sensitivity of mammography. There is no discrete abnormality. ASSESSMENT: Negative, BI-RAD 1 RECOMMENDATION: Routine screening mammogram of both breasts in 1 year.
== END | disposition home or self-care (01) ==
LOC: RADMAMWWP 13:47
PROVIDERS: ATTEND Family Medicine
DX: Z12.31 Encounter for screening mammogram for malignant neoplasm of breast (principal); Z78.0 Asymptomatic menopausal state; Z80.3 Family history of malignant neoplasm of breast
CPT/HCPCS: 77063; 77067

== ENCOUNTER → 2022-11-22 | Outpatient (CLI) | payer OTHER ==
--- NOTE | 2022-11-22 15:19 | BD ---
EXAMINATION TYPE: Axial Bone Density DATE OF EXAM: 11/22/2022 COMPARISON: NONE CLINICAL HISTORY: 52 years year old Female. ICD-10 CODE: Z13.820 SCREENING FOR OSTEOPOROSIS Height: 68 Weight: 280.3 FRAX RISK QUESTIONS: Alcohol (3 or more units per day): NO Family History (Parent hip fracture): NO Glucocorticoids (More than 3mos): NO History of Fracture in Adulthood: TIBIA Secondary Osteoporosis: 1. Type 1 Diabetes: NO 2. Hyperthyroidism: NO 3. Menopause before 45: NO 4. Malnutrition: NO 5. Chronic liver disease: NO Rheumatoid Arthritis: NO Current Tobacco Use: NO RISK FACTORS HISTORY OF: Hip Fracture (Right/Left): NO Spine Fracture: NO History of Wrist Fracture: NO Surgery to Spine/Hip(right/left)/Wrist (right/left): NO Family History of Osteoporosis: MOTHER Active: NO Diet low in dairy products/other sources of calcium: YES Postmenopausal woman: NO Take estrogen and/or progesterone medications: NO Lost more than 2 inches in height since high school: NO Frequent falls: NO Poor Health: NO Hyperparathyroidism: NO Adrenal Insufficiency: NO MEDICATIONS: Prednisone or other steroids: NO Thyroid Medications: NO Osteoporosis Medications: NO Additional Medications: BP MEDS, CHOLESTEROL MEDS, VIT EXAM MEASUREMENTS: Bone mineral densitometry was performed using the [employer] System. Bone mineral density as measured about the Lumbar spine is: ----- L1-L4(G/cm2): 1.151 T Score Values are as follows: ----- L1: -1.2 ----- L2: -0.5 ----- L3: 0.3 ----- L4: 0.1 ----- L1-L4: -0.2 BASELINE STUDY Bone mineral density about the R hip (g/cm2): 0.895 Bone mineral density about the L hip (g/cm2): 0.787 T Score values are as follows: -----R Neck: -1.0 -----L Neck: -1.8 -----R Total: 0.0 -----L Total: -0.5 BASELINE STUDY FRAX%s: The graph provided illustrates a 9.8% chance for a major osteoporotic fx and a 1.1% chance fo r the hips probability for fx in 10 years time. IMPRESSION: Osteopenia (T Score between -2.5 and -1). There is slightly increased risk of fracture and the patient may be considered for treatment. Re-Screen 2-5 years. NOTE: T-SCORE=SD OF THE YOUNG ADULT MEAN.
--- NOTE | 2022-11-23 20:39 | MM ---
Reason for Exam: Screening (asymptomatic). Last screening mammogram was performed 12 month(s) ago. Patient History: Menarche at age 13. First Full-Term at age 22. Hysterectomy at age 41. Postmenopausal. Maternal cousin had breast cancer, age 40. Maternal aunt had breast cancer, age 70. Risk Values: Beatrice 5 year model risk: 0.9%. NCI Lifetime model risk: 7.8%. Prior Study Comparison: 11/19/2021 Bilateral Screening Mammogram, [facility]. Tissue Density: The breast tissue is heterogeneously dense. This may lower the sensitivity of mammography. Findings: Analyzed By CAD. Patchy bilateral breast tissue has a similar configuration compared to the prior exam. Unchanged low axillary tail lymph node on the left. No significant change from prior exam. Overall Assessment: Benign, BI-RAD 2 Management: Screening Mammogram of both breasts in 1 year. 1. Patient should continue monthly self breast exams. 2. A clinical breast exam by your physician is recommended on an annual basis. 3. This exam should not preclude additional follow-up of suspicious palpable abnormalities. Electronically signed and approved by: Jocelyn Coy M.D. Radiologist
== END | disposition home or self-care (01) ==
LOC: RADMAMWWP 14:07
PROVIDERS: ATTEND Family Medicine
DX: Z12.31 Encounter for screening mammogram for malignant neoplasm of breast (principal); Z13.820 Encounter for screening for osteoporosis; M85.89 Other specified disorders of bone density and structure, multiple sites; Z78.0 Asymptomatic menopausal state; Z79.52 Long term (current) use of systemic steroids; Z80.3 Family history of malignant neoplasm of breast
CPT/HCPCS: 77067; 77080

== ENCOUNTER 2023-06-13 15:59 | Observation (INO) | payer MEDICAID, OTHER ==
--- NOTE | 2023-06-13 16:30 | ED ---
Chest Pain HPI - General Chief Complaint: Chest Pain Stated Complaint: Chest Pain,Sob Time Seen by Provider: 06/13/23 16:05 Source: patient Mode of arrival: wheelchair Limitations: no limitations - History of Present Illness Initial Comments: This patient is a 53-year-old woman who presents to have evaluation of pain in the right thoracic back radiating to the epigastric area. This started Tuesday 7 PM while she was on her boat. The patient states it does not appear to be related to eating or to exertion. She has noted that the pain gets better if she lies on her left side. The pain is worse if she lies supine. She states that when the pain continued today she went and saw her physician who recommended she go to the emergency department to have further evaluation. She notes that it feels somewhat to the pain she had prior to her gallbladder being taken out but that was over 15 years ago now she states. She has not noted accompanying symptoms. No dyspnea, diaphoresis, nausea or vomiting. She did have one episode of loose stool earlier today. No change in urination. MD Complaint: chest pain Onset/Timin -: days(s) Onset: during rest Pain Location: right chest Pain Radiation: back Severity: moderate Quality: aching Consistency: constant Improves With: other (Lying on her left side) Worsens With: supine Treatments Prior to Arrival: none - Related Data Home Medications Medication Instructions Recorded Confirmed Ezetimibe [Zetia] 10 mg PO HS 08/23/20 06/13/23 Losartan Potassium 100 mg PO HS 08/23/20 06/13/23 Rosuvastatin [Crestor] 20 mg PO HS 08/23/20 06/13/23 Ascorbic Acid [Vitamin C] 500 mg PO HS 06/13/23 06/13/23 Tvb-Kger-Oupdx Acid 1 cap PO HS 06/13/23 06/13/23 [-U Capsule (formulary)] hydroCHLOROthiazide 12.5 mg PO DAILY PRN 06/13/23 06/13/23 Allergies Allergy/AdvReac Type Severity Reaction Status Date / Time erythromycin base Allergy Rash/Hives Verified 06/13/23 17:38 Review of Systems ROS Statement: Those systems with pertinent positive or pertinent negative responses have been documented in the HPI. ROS Other: All systems not noted in ROS Statement are negative. Constitutional: Denies: fever, chills, weakness Respiratory: Denies: cough, dyspnea Cardiovascular: Reports: as per HPI, chest pain. Denies: palpitations, orthopnea, edema, syncope Gastrointestinal: Reports: as per HPI, abdominal pain, diarrhea. Denies: nausea, vomiting, constipation, melena, hematochezia Genitourinary: Denies: dysuria, frequency, hematuria Musculoskeletal: Denies: back pain Skin: Denies: rash Neurological: Denies: headache, weakness, numbness EKG Findings - EKG Results: EKG: interpreted by ERMD, sinus rhythm, normal axis, normal QRS - Blocks, Long Bottom, Hypertrophy, ST Abn: QRS axis and voltage: low voltage (<0.5 MV total QRS and <1.0 MV in each precordial lead) Past Medical History Past Medical History: Hyperlipidemia, Hypertension Additional Past Medical History / Comment(s): had a cardiac ablation for v tach History of Any Multi-Drug Resistant Organisms: None Reported Past Surgical History: Cardiac Ablation, Cholecystectomy, Hysterectomy, Tonsillectomy Past Anesthesia/Blood Transfusion Reactions: No Reported Reaction Past Psychological History: Depression Smoking Status: Never smoker Past Alcohol Use History: Rare Past Drug Use History: None Reported - Past Family History Mother Additional Family Medical History / Comment(s): and mother positive for CoVID General Exam Limitations: no limitations General appearance: alert, in no apparent distress Head exam: Present: atraumatic, normocephalic Eye exam: Present: normal appearance. Absent: scleral icterus, conjunctival injection ENT exam: Present: normal oropharynx Neck exam: Present: normal inspection Respiratory exam: Present: normal lung sounds bilaterally. Absent: respiratory distress, wheezes, rales, rhonchi, stridor Cardiovascular Exam: Present: regular rate, normal rhythm, normal heart sounds. Absent: systolic murmur, diastolic murmur, rubs, gallop GI/Abdominal exam: Present: soft. Absent: distended, tenderness, guarding, rebound, rigid, mass, pulsatile mass Extremities exam: Present: normal inspection, normal capillary refill. Absent: pedal edema, calf tenderness Back exam: Present: normal inspection. Absent: CVA tenderness (R), CVA tenderness (L) Neurological exam: Present: alert Skin exam: Present: warm, dry, intact, normal color. Absent: rash Course Vital Signs 06/13/23 06/13/23 06/13/23 16:02 16:04 16:33 Temperature 98.9 F Pulse Rate 79 70 Respiratory 18 16 20 Rate Blood Pressure 176/106 145/86 O2 Sat by Pulse 100 98 Oximetry 06/13/23 06/13/23 06/13/23 17:53 18:00 19:00 Temperature Pulse Rate 84 100 66 Respiratory 16 24 20 Rate Blood Pressure 115/87 149/110 149/95 O2 Sat by Pulse 98 99 99 Oximetry Chest Pain MDM - MDM The patient had chest x-ray which I interpreted as being negative for acute infiltrate, pneumothorax, congestive heart failure. Patient's 53-year-old woman with episodic chest pain radiating to the back. Her initial workup here negative. While in the department she did have another episode of pain coming by blood pressure up to 170/110, therefore CT angiography of the aorta to rule out dissection. Given that the pains continue to be episodic will admit to have serial cardiac enzymes, telemetry monitoring, cardiology consultation though at this point pains are definitely atypical. Disposition Clinical Impression: Chest pain Disposition: ADMITTED IP TO THIS HOSP Condition: Good Instructions (If sedation given, give patient instructions): Chest Pain (ED) Is patient prescribed a controlled substance at d/c from ED?: No Referrals: Valentino Coelho DO [Primary Care Provider] - 1-2 days
[2023-06-13] MEDS ORDERED: MAG HYDROX/AL HYDROX/SIMETH 30 ML, HYOSCYAMINE ELIXIR 10 ML, LIDOCAINE 2% GLYDO JELLY 1... PO STA ×6 (16:42→19:22)
--- NOTE | 2023-06-13 17:15 | XR ---
EXAMINATION TYPE: XR chest 2V DATE OF EXAM: 06/13/2023 5:05 PM COMPARISON: Chest radiographs from 08/27/2020 TECHNIQUE: XR chest 2V Frontal and lateral views of the chest. CLINICAL INDICATION:Female, 53 years old with history of Chest Pain; FINDINGS: Lungs/Pleura: There is no evidence of pleural effusion, focal consolidation, or pneumothorax. Pulmonary vascularity: Unremarkable. Heart/mediastinum: Cardiomediastinal silhouette is unremarkable. Musculoskeletal: No acute osseous pathology. IMPRESSION: No acute cardiopulmonary disease/process.
[2023-06-13 17:23] LABS: Basophils % (A) 1 %; Eosinophils # (A) 0.3 k/uL (0-0.7); Eosinophils % (A) 7 %; HCT 44.3 % (34.0-46.0); HGB 15.1 gm/dL (11.4-16.0); Lymphocytes # (A) 2.3 k/uL (1.0-4.8); Lymphocytes % (A) 51 %; MCH 28.6 pg (25.0-35.0); MCHC 34.1 g/dL (31.0-37.0); Mean Platelet Volume 7.5; Monocytes # (A) 0.5 k/uL (0-1.0); Monocytes % (A) 11 %; Neutrophils # (A) 1.3 k/uL (1.3-7.7); Neutrophils % (A) 28 %; Platelet Count 207 k/uL (150-450); RBC 5.28 m/uL (3.80-5.40); RDW 13.5 % (11.5-15.5); WBC 4.6 k/uL (3.8-10.6)
[2023-06-13 17:32] LABS: ALT 30 U/L (4-34); AST 25 U/L (14-36); African American GFR (CKD) >90 (>60 ml/min/1.73 sqM); Albumin 4.3 g/dL (3.5-5.0); Alkaline Phosphatase 77 U/L (38-126); Amylase 41 U/L (30-110); Anion Gap 8 mmol/L; Blood Urea Nitrogen 20 mg/dL (7-17); Calcium 9.2 mg/dL (8.4-10.2); Carbon Dioxide 28 mmol/L (22-30); Chloride 103 mmol/L (98-107); Glucose 93 mg/dL (74-99); Lipase 72 U/L (23-300); Magnesium 2.1 mg/dL (1.6-2.3); Non-African American GFR(CKD) >90 (>60 ml/min/1.73 sqM); Potassium 4.3 mmol/L (3.5-5.1); Sodium 139 mmol/L (137-145); Total Bilirubin 0.8 mg/dL (0.2-1.3); Total Protein 7.7 g/dL (6.3-8.2)
[2023-06-13] MEDS ORDERED: MORPHINE SULFATE 4 MG/ML SYRINGE IV STA (18:00)
[2023-06-13] MEDS ORDERED: HYDROmorphone 1 MG/ML 1 ML SYRINGE IVP STA (19:05)
--- NOTE | 2023-06-13 19:10 | CT ---
EXAMINATION TYPE: CT angio thor/abd pel aorta CT DLP: 1333 mGycm, Automated exposure control for dose reduction was used. DATE OF EXAM: 06/13/2023 6:38 PM COMPARISON: None. CLINICAL INDICATION:Female, 53 years old with history of chest/back pain; Epigastric pain that radiat es to her shoulders and back. TECHNIQUE: Dissection protocol: Multiple axial CT images of the chest, abdomen, and pelvis were obtai lizeth prior and to the administration of IV contrast. 3-D reformats and maximum intensity projection fo rmat were performed on a separate workstation. Contrast used:100 ml mL of Isovue 370 with IV Contrast, Oral contrast used: None FINDINGS: ARTERIAL VASCULATURE: Mild ectasia of ascending thoracic aorta measuring up to 41 mm. The remainder o f the aorta is normal in course and caliber. There is no evidence of aortic dissection, aneurysm or a cute aortic injury. Great arch vessels patent and normal in course and caliber. Mild atherosclerotic changes of the thoracic aorta. The origins of the celiac axis, superior mesenteric artery bilateral d ouble renal arteries and inferior mesenteric artery appearing. PULMONARY ARTERIAL VASCULATURE: Normal caliber. No evidence of filling defect to suggest pulmonary em bolus. VENOUS SYSTEM: Unremarkable. Lungs/pleura: The lung parenchyma appears unremarkable. Right upper lung calcified granuloma. No con solidation, pneumothorax or pleural effusion. Heart: Heart is mildly enlarged for size. Mild indications of the coronary arteries. Mediastinum: No gross evidence of adenopathy. Lower Neck: No significant findings. Abdomen: Liver: Unremarkable. Gallbladder and Bile ducts: The gallbladder is surgically absent. Pancreas: Unremarkable. Spleen: Small splenules are present. Adrenal glands: Unremarkable. Kidneys and Ureters: Unremarkable. No hydronephrosis. Bladder: Unremarkable. Reproductive: Unremarkable. Stomach and Bowel: No evidence of bowel obstruction. Peritoneum: No evidence of pneumoperitoneum, free fluid, or adenopathy. Musculoskeletal: Mild degeneration changes throughout the visualized spine. Lymph nodes: No evidence of lymphadenopathy. Abdominal wall/soft tissues: Unremarkable. IMPRESSION: 1. No evidence for thoracic aortic dissection, aneurysm, intramural hematoma or significant atherosc lerosis. 2. 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 3. No acute abdominal process.
[2023-06-13] MEDS ORDERED: NITROGLYCERIN SL TABS 0.4 MG TAB SUBLINGUAL STA (19:21)
[2023-06-13] MEDS ORDERED: MORPHINE SULFATE 4 MG/ML SYRINGE IV PRN (20:18)
[2023-06-13] MEDS ORDERED: NITROGLYCERIN SL TABS 0.4 MG TAB SUBLINGUAL PRN (20:18)
[2023-06-13] MEDS ORDERED: ASPIRIN 81 MG PO STA (20:18)
[2023-06-13] MEDS ORDERED: ACETAMINOPHEN TAB 325 MG TAB PO PRN (20:18)
[2023-06-13] MEDS ORDERED: hydroCHLOROthiazide 12.5 MG CAP PO PRN (20:20)
[2023-06-13 20:30] VITALS: RESP 16
[2023-06-13] MEDS ORDERED: EZETIMIBE 10 MG TAB PO SCH (21:00)
[2023-06-13] MEDS ORDERED: LOSARTAN 50 MG TAB PO SCH (21:00)
[2023-06-13] MEDS ORDERED: ATORVASTATIN 40 MG TAB PO SCH (21:00)
[2023-06-13] MEDS ORDERED: ONDANSETRON 4 MG/2 ML VIAL IVP PRN (21:37)
[2023-06-13] MEDS ORDERED: KETOROLAC 15 MG/ML 1 ML VIAL IVP STA (22:30)
[2023-06-14 03:03] VITALS: TEMP 97.7
--- NOTE | 2023-06-14 04:14 | P.HPIM ---
History of Present Illness H&P Date: 06/13/23 Chief Complaint: chest pain 53 year old female with hypertension , HLD she is coming in today with back pain radiating to the epigastric region , it started Tuesday , suddenly, back pain would improve when she finally finds a comfortable position, Tuesday was a good day overall , and she thought she is fine. However , on Tuesday she had another episode while at work climbing some steps, and this time was radiating to the epigastric region and felt like an esophageal spasms she had in the past this was followed by an episode of diarrhea (total 4 episodes) she denies any unsanitary food or drink , she was on a boat trip over the weekend , and claims that every one else who was with her are fine. no associated nausea , vomiting, fever, chills, dizziness, or SOB. denies any CAD in the past, however she did have some cardiac work done for Vtach in the past. denies any recent travel, hospital stay , or cancer diagnosis , denies any blood clots in the past. denies tobacco smoking , illicit drugs or alcohol review of systems Pertinent positives as noted in HPI. All other systems were reviewed and are negative on exam Constitutional: No acute distress, conversant, pleasant Eyes: Anicteric sclerae, moist conjunctiva, Pupils equal round reactive to light ENMT: NC/AT Oropharynx clear, no erythema, or exudates Neck: Supple, no masses, or JVD No carotid bruits No thyromegaly Lungs: Clear to auscultation Clear to percussion Normal respiratory effort, no accessory muscle use Cardiovascular: Heart regular in rate and rhythm, No murmurs, gallops, or rubs No peripheral edema Abdominal: Soft Nontender, no guarding, rebound or rigidity Abdomen moving with respiration Normoactive bowel sounds No hepatomegaly, No splenomegaly No palpable mass No abdominal wall hernia noted Skin: Normal temperature, tone, texture, turgor No induration No subcutaneous nodules No rash, lesions No ulcers Extremities: No digital cyanosis No clubbing Pedal pulses intact and symmetrical Radial pulses intact and symmetrical No calf tenderness Psychiatric: Alert and oriented to person, place and time Appropriate affect fair judgement Neuro Muscles Strength 5/5 in all 4 extremities Sensation to light touch grossly present throughout Cranial nerves II-XII grossly intact Lymphatics: no palpable cervical or supraclavicular lymph nodes Past Medical History Past Medical History: Hyperlipidemia, Hypertension Additional Past Medical History / Comment(s): had a cardiac ablation for v tach History of Any Multi-Drug Resistant Organisms: None Reported Past Surgical History: Cardiac Ablation, Cholecystectomy, Hysterectomy, Tonsillectomy Additional Past Surgical History / Comment(s): plate with six screws on left leg due to fracture. Past Anesthesia/Blood Transfusion Reactions: No Reported Reaction Past Psychological History: Depression Smoking Status: Never smoker Past Alcohol Use History: Rare Past Drug Use History: None Reported - Past Family History Mother Additional Family Medical History / Comment(s): and mother positive for CoVID Medications and Allergies Home Medications Medication Instructions Recorded Confirmed Type Ezetimibe [Zetia] 10 mg PO HS 08/23/20 06/13/23 History Losartan Potassium 100 mg PO HS 08/23/20 06/13/23 History Rosuvastatin [Crestor] 20 mg PO HS 08/23/20 06/13/23 History Ascorbic Acid [Vitamin C] 500 mg PO HS 06/13/23 06/13/23 History Mkr-Bqml-Sozzh Acid 1 cap PO HS 06/13/23 06/13/23 History [-U Capsule (formulary)] hydroCHLOROthiazide 12.5 mg PO DAILY PRN 06/13/23 06/13/23 History Allergies Allergy/AdvReac Type Severity Reaction Status Date / Time erythromycin base Allergy Rash/Hives Verified 06/13/23 17:38 Physical Exam Vitals: Vital Signs Temp Pulse Pulse Resp BP BP Pulse Ox 06/14/23 02:21 97.7 F 65 16 123/76 97 06/13/23 21:29 98.2 F 59 L 18 150/64 100 06/13/23 21:20 85 16 148/89 98 06/13/23 20:00 68 16 140/90 98 06/13/23 19:00 66 20 149/95 99 06/13/23 18:00 100 24 149/110 99 06/13/23 17:53 84 16 115/87 98 06/13/23 16:33 20 06/13/23 16:04 70 16 145/86 98 06/13/23 16:02 98.9 F 79 18 176/106 100 Intake and Output 06/13/23 06/13/23 06/14/23 14:59 22:59 06:59 Other: # Voids 0 Weight 130.635 kg Results CBC & Chem 7: 06/13/23 16:42 06/13/23 16:42 Labs: Abnormal Lab Results - Last 24 Hours (Table) 06/13/23 Range/Units 16:42 BUN 20 H (7-17) mg/dL Thrombosis Risk Factor Assmnt - Choose All That Apply Any of the Below Risk Factors Present?: Yes Each Factor Represents 1 point: Age 41-60 years, Obesity (BMI >25) Other Risk Factors: Yes Other congenital or acquired thrombophilia - If yes, enter type in comment: No Thrombosis Risk Factor Assessment Total Risk Factor Score: 2 Thrombosis Risk Factor Assessment Level: Low Risk Assessment and Plan Assessment: 53 year old female with hypertension , coming in for back pain that radiates to the epigastric region , I discussed the case with ED doc and I accepted the admission for atypical chest [pain to rule out ACS. with anticipated length of stay < 2 midnights atypical chest pain cardiology consult trops negative EKG no acute ST changes lunchroom monitor monitor vital signs continue with ASA, statin , zetia IVF hydration with normal saline 75 cc per hour PPI po daily opiates PRN for pain control hypertension continue losartan , and HCTz full code DVT PPX heparin sc tid 5000 mg
[2023-06-14] MEDS ORDERED: SODIUM CHLORIDE 0.9% 1,000 ML IV SCH (04:15)
[2023-06-14] MEDS ORDERED: HEPARIN SODIUM,PORCINE 5,000 UNIT/ML 1 ML VIAL SQ SCH (08:00)
[2023-06-14] MEDS ORDERED: ASPIRIN 325 MG TAB PO SCH (09:00)
[2023-06-14 09:11] VITALS: BP 156/83; PULSE 68
[2023-06-14 10:53] LABS: Chol/HDL Ratio 2.74 Ratio; LDL Cholesterol,Calculated 84.3 mg/dL (0.0-131.0)
--- NOTE | 2023-06-14 10:54 | P.DS ---
Providers Date of admission: 06/13/23 20:18 Expected date of discharge: 06/14/23 Attending physician: Marj Calix MD Consults: 06/13/23 20:18 Consult Physician Routine Consulting Provider: Roverto Edwards Consult Reason/Comments: chest pain Do you want consulting provider notified?: Yes [facility] care [facility] Course: Discharge Diagnosis: Back\Epigastric/chest pain, acute coronary event ruled out. Positional back pain, secondary to muscle strain. Nontender upon palpation of spinal cord, musculoskeletal tenderness reproducible with movement and positioning. Hypertension Hyperlipidemia Hospital Course: Patient is a very pleasant 53-year-old female with a past medical history of hypertension and hyperlipidemia. She presented to the emergency department on 06/13/23 secondary to complaints of back pain radiating into her epigastric region. Patient reported pain started on Tuesday and would improve sometimes with positioning but worsened with any movement. Patient reports initially pain was only in her back that began radiating into her epigastric region so she came to the emergency department for evaluation. Upon arrival to the emergency department patient underwent full evaluation. EKG was completed showing normal sinus rhythm at 69 bpm with no noted T-wave or ST abnormalities upon personal review and interpretation. Chest x-ray completed negative for acute cardiopulmonary process. CT angiogram of thoracic/abdomen/pelvis showing no ev idence for thoracic aortic dissection, aneurysm, intramural hematoma or significant atherosclerosis with mild ectasia of the ascending aorta measuring up to 41 mm and negative for acute intra-abdominal process. Labs were completed and reviewed. CBC was unremarkable. D-dimer negative at 0.24. CMP also unremarkable. Troponin negative at less than 0.012. Amylase and lipase normal findings. Patient admitted under the services of consultation cardiology. Troponins were trended overnight all negative at less than 0.0123 draws. Lipid profile unremarkable. Repeat morning EKG showing sinus bradycardia at 51 bpm again with no noted T-wave or ST abnormalities. Patient was evaluated by cardiology and echocardiogram was completed. Echocardiogram revealing normal EF of 55%, no significant structural or valvular abnormalities reported, no pericardial effusion, no pulmonary hypertension and a small anterior echo-free space secondary to fat pad. Back pain radiating and epigastric region is likely secondary to muscle strain and improves with positioning. Patient cleared from cardiology for outpatient follow-up in our office. Medically, patient is stable for discharge home at this time. Patient was discharged home on Robaxin 1000 mg 4 times daily as needed for muscle spasms and Toradol 10 mg every 6 hours as needed for pain. Patient instructed not to take NSAIDs along with Toradol tablets. Patient to follow up outpatient with PCP in 1-2 days and cardiology in 1 week. Physical exam: Patient seen and examined at bedside, she was sitting up in chair currently reporting free from any pain/discomfort at this time. Patient continues to report pain is positional and describes as a sharp and stabbing pain. She denies any radiation of pain into extremities and denies having any numbness/tingling/weakness in her extremities or experiencing any involuntary loss of bowel or bladder. Patient denied spinal canal tenderness upon palpati on, when pain occurs patient reports it is more towards the sides in muscular region. Patient currently free from pain or discomfort. Vital signs reviewed and stable. General: Nontoxic, no distress and appears stated age. Derm: Skin warm and dry, normal coloration for ethnicity. Head: Atraumatic, normocephalic and symmetric. Eyes: EOMs intact, no lid lag, and anicteric sclera Mouth: no lip lesions, mucus membranes moist Cardiovascular: regular rate and rhythm with normal S1S2, no murmur, positive posterior tibial pulses bilaterally, and cap refill < 2 seconds. Lungs: Respirations even, regular, and unlabored on room air. Lungs CTA bilaterally, no rhonchi, no rales, no wheezing, and no accessory muscle usage. Abdominal: soft, nontender to palpation, no guarding, no appreciable or ganomegaly Ext: ROM intact. No gross muscle atrophy, no edema, no contractures Neuro: Speech clear, face symmetrical and CN II-XII grossly intact with no noted focal neuro deficits Psych: Alert and oriented to person, place, time, and situation. Appropriate and pleasant affect. A total of 33 minutes of time were spent preparing this complex discharge summary. Pt was discharged on 06/14/23 at 10:53 AM Patient was seen independently by Nurse Practitioner. This document was prepared using [employer] dictation software. Please allow for errors in steel fabricator while rare they do occur. Iker Hays NP rendered care for this patient independently, reviewed the findings and plan as documented in the note above. I did not physically speak with or examine the patient on this date. Patient Condition at Discharge: Stable Plan - Discharge Summary Discharge Rx Participant: No New Discharge Prescriptions: New Ketorolac [Toradol] 10 mg PO Q6HR PRN #40 tab PRN Reason: Pain methocarbamoL [Robaxin] 1,000 mg PO QID PRN #40 tab PRN Reason: Muscle Spasm Continue Rosuvastatin [Crestor] 20 mg PO HS Losartan Potassium 100 mg PO HS Ezetimibe [Zetia] 10 mg PO HS hydroCHLOROthiazide 12.5 mg PO DAILY PRN PRN Reason: high bp Ascorbic Acid [Vitamin C] 500 mg PO HS Lun-Uwyx-Guppo Acid [-U Capsule (formulary)] 1 cap PO HS Discharge Medication List Ezetimibe [Zetia] 10 mg PO HS 08/23/20 [History] Losartan Potassium 100 mg PO HS 08/23/20 [History] Rosuvastatin [Crestor] 20 mg PO HS 08/23/20 [History] Ascorbic Acid [Vitamin C] 500 mg PO HS 06/13/23 [History] Vrm-Bmnm-Qmnff Acid [-U Capsule (formulary)] 1 cap PO HS 06/13/23 [History] hydroCHLOROthiazide 12.5 mg PO DAILY PRN 06/13/23 [History] Ketorolac [Toradol] 10 mg PO Q6HR PRN #40 tab 06/14/23 [Rx] methocarbamoL [Robaxin] 1,000 mg PO QID PRN #40 tab 06/14/23 [Rx] Follow up Appointment(s)/Referral(s): Deborah Suarez MD [STAFF PHYSICIAN] - 1 Week Valentino Coelho DO [Primary Care Provider] - 1-2 days Patient Instructions/Handouts: Chest Pain (ED) Activity/Diet/Wound Care/Special Instructions: Activity: As tolerated. Take breaks as needed. Diet: Heart healthy and carb consistent diet. Avoid salts, or foods with hidden salts such as canned or boxed foods and frozen dinners. Extra salt makes your heart work harder and traps the fluid in your body for longer. Special Instructions: Take all of your medications as directed and remember to keep all of your doctor's appointments and follow-up as needed. Do not take ketoralac and motrin/ibuprofen together, if you need additional pain medication may take tylenol/acetaminophen. Thank you for allowing us to participate in your care, it was truly a pleasure having you for our patient!!! Discharge Disposition: HOME SELF-CARE
--- NOTE | 2023-06-14 11:22 | CA ---
Transthoracic Echo Report Name: Michelle Block Age: 53 Gender: F : 1970 Exam Date: 06/14/2023 09:35 Exam Location: [place] [facility] Ht (in): 68 Wt (lb): 288 Ordering Physician: Sirena Henning Attending/Referring Phys: [id number], Milady Manager Materials Management Gabriela Maharaj [facility] Procedure CPT: Indications: LVF Cardiac Hx: Technical Quality: Fair Contrast 1: Total Dose (mL): Contrast 2: Total Dose (mL): MEASUREMENTS (Male / Female) Normal Values 2D ECHO LV Diastolic Diameter PLAX 5.2 cm 4.2 - 5.9 / 3.9 - 5.3 cm LV Systolic Diameter PLAX 3.4 cm IVS Diastolic Thickness 1.0 cm 0.6 - 1.0 / 0.6 - 0.9 cm LVPW Diastolic Thickness 0.9 cm 0.6 - 1.0 / 0.6 - 0.9 cm LV Relative Wall Thickness 0.4 LVOT Diameter 2.0 cm Ascending Aorta Diameter 4.1 cm M-MODE Aortic Root Diameter MM 2.8 cm LA Systolic Diameter MM 3.1 cm LA Ao Ratio MM 1.1 AV Cusp Separation MM 1.7 cm DOPPLER AV Peak Velocity 164.6 cm/s AV Peak Gradient 10.8 mmHg AV Mean Velocity 109.6 cm/s AV Mean Gradient 5.3 mmHg AV Velocity Time Integral 36.0 cm LVOT Peak Velocity 129.8 cm/s LVOT Peak Gradient 6.7 mmHg LVOT Velocity Time Integral 27.1 cm LVOT Stroke Volume 87.9 cm??? LVOT Stroke Volume Index 36.8 ml/m??? LVOT Cardiac Index 1983.7 cm???/min???m??? AV Area Cont Eq vti 2.4 cm??? AV Area Cont Eq pk 2.6 cm??? Mitral E Point Velocity 69.3 cm/s Mitral A Point Velocity 79.9 cm/s Mitral E to A Ratio 0.9 MV Deceleration Time 147.3 ms LV E' Lateral Velocity 12.3 cm/s Mitral E to LV E' Lateral Ratio 5.6 LV E' Septal Velocity 7.4 cm/s Mitral E to LV E' Septal Ratio 9.4 TR Peak Velocity 285.6 cm/s TR Peak Gradient 32.6 mmHg Right Atrial Pressure 3.0 mmHg Pulmonary Artery Systolic Pressu 35.6 mmHg Right Ventricular Systolic Press 35.6 mmHg FINDINGS Left Ventricle Left ventricular wall thickness normal. Left ventricular cavity size at the upper limits of normal. No obvious regional wall motion abnormalities. Left ventricular ejection fraction is estimated at 55%. Preserved systolic function. Prominent left ventricular trabeculations. Right Ventricle Right ventricle at upper limits of normal. Mild pulmonary hypertension. Right Atrium Normal right atrial size. Left Atrium Normal left atrial size. Mitral Valve Structurally normal mitral valve. Trace mitral regurgitation. Aortic Valve Trileaflet aortic valve. Thickened aortic valve without stenosis. No aortic regurgitation. Tricuspid Valve Structurally normal tricuspid valve. Mild tricuspid regurgitation. Pulmonic Valve Structurally normal pulmonic valve. No pulmonic regurgitation. Pericardium No pericardial effusion. Echo free space anterior to the right ventricle likely represents a fat pad. Aorta Normal size aortic root. Mildly dilated proximal ascending aorta (tube). CONCLUSIONS Normal LV size with preserved systolic function. Minimal mitral and tricuspid regurgitation. No pericardial effusion. Small anterior echo free space is a fat pad. No pulmonary hypertension Previewed by: Dr. Deborah Suarez MD (Electronically Signed) Final Date: 14 June 2023 11:21
--- NOTE | 2023-06-14 22:55 | CONS ---
CONSULTATION HISTORY OF PRESENT ILLNESS: This is a 53-year-old lady who has been admitted to the hospital with discomfort in the right scapular area with some radiation to the front. Quality of pain is musculoskeletal. She does not recall doing anything heavy activity. Her blood pressure on arrival was elevated. Thoracic CT angio did not reveal any evidence of aortic dissection. The patient's blood pressure is now better controlled. She does carry a diagnosis of hypertension and hyperlipidemia and takes hydrochlorothiazide, rosuvastatin, losartan, and Zetia. At the time of my evaluation, she is resting comfortably. She complains of a specific localized area of discomfort medial to the right medial border of the scapula and also next to the spine. Quality of pain is musculoskeletal. PAST MEDICAL HISTORY: 1. Hypertension. 2. Hyperlipidemia. 3. No evidence of any prior myocardial infarction or CVA. MEDICATIONS AT HOME: Include, 1. Losartan 100 mg daily. 2. HCTZ 12.5 mg daily. 3. Crestor 20 mg daily. PHYSICAL EXAMINATION: VITAL SIGNS: Blood pressure is 123/76, pulse rate is 64 per minute. HEENT: Unremarkable. Fundus was not examined by me. NECK: Supple. No JVD. I do not hear a carotid bruit. There is no thyromegaly. HEART: Reveals S1, S2 heard normally. No rub, murmur or gallop. LUNGS: Clear. ABDOMEN: Soft, nontender. MUSCULOSKELETAL: Lower extremities reveal normal pulses. No edema. CENTRAL NERVOUS SYSTEM: Normal. DIAGNOSTIC DATA: EKG revealed sinus mechanism, no acute changes. IMPRESSION: 1. Musculoskeletal back pain, not suggestive of any cardiac etiology. 2. Hypertension. 3. Unremarkable CT angio for any aortic pathology. RECOMMENDATIONS: I am recommending that the patient should take nonsteroidal anti-inflammatory agents and avoid movement of the hand too much and I will see her in the office in the next week or so. We will do a stress test as an outpatient. Echocardiogram was performed and revealed normal LV systolic function. Thank you very much for the consult. MMODL / IJN: [id number] /
== END 2023-06-14 11:28 | disposition home or self-care (01) ==
LOC: EC 15:59 → 6NMEDSUR 20:18
PROVIDERS: ADMIT Internal Medicine; ATTEND Internal Medicine
DX: R07.89 Other chest pain (principal); M54.9 Dorsalgia, unspecified; I10 Essential (primary) hypertension; E78.5 Hyperlipidemia, unspecified; F32.A Depression, unspecified; Z79.899 Other long term (current) drug therapy; Z88.1 Allergy status to other antibiotic agents
CPT/HCPCS: 96375 ×2; 96374; 99285; 36415; 94760; 93005; 93306; 85379; 80061; 80053; 82150; 83690; 83735; 84484; 85025; 71046; 71275; 74174; G0378 ×2; J2270; J2405; J1170; J1885; Q9967

== ENCOUNTER → 2023-12-05 | Outpatient (CLI) | payer BC, OTHER ==
--- NOTE | 2023-12-06 20:42 | MM ---
Reason for Exam: Screening (asymptomatic). Last screening mammogram was performed 12 month(s) ago. Patient History: Menarche at age 13. First Full-Term at age 22. Hysterectomy at age 41. Postmenopausal. Maternal cousin had breast cancer, age 40. Maternal aunt had breast cancer, age 70. Risk Values: Beatrice 5 year model risk: 1.0%. NCI Lifetime model risk: 7.7%. Prior Study Comparison: 11/19/2021 Bilateral Screening Mammogram, [facility]. 11/22/2022 Bilateral MG screening mammo w CAD, [facility]. Tissue Density: The breast tissue is heterogeneously dense. This may lower the sensitivity of mammography. Findings: Analyzed By CAD. Asymmetric density central outer left CC view for which further evaluation is recommended. Otherwise, no significant change. Overall Assessment: Incomplete: need additional imaging evaluation, BI-RAD 0 Management: Special View Mammogram of the left breast. Diagnostic Breast Ultrasound of the left breast. Additional views to include spot 3-D CC, 3-D CC rolled, and 3-D ML views. Targeted left breast ultrasound if any persisting abnormality. [facility] will attempt to contact patient to return for supplemental views and ultrasound if indicated. Electronically signed and approved by: Jocelyn Coy M.D. Radiologist
== END | disposition home or self-care (01) ==
LOC: RADMAMWWP 14:26
PROVIDERS: ATTEND Family Medicine
DX: Z12.31 Encounter for screening mammogram for malignant neoplasm of breast (principal); Z80.3 Family history of malignant neoplasm of breast; Z78.0 Asymptomatic menopausal state
CPT/HCPCS: 77063; 77067

== ENCOUNTER → 2023-12-13 | Outpatient (CLI) | payer BC, OTHER ==
--- NOTE | 2023-12-13 13:39 | MM ---
Reason for Exam: Additional evaluation requested from abnormal screening. Last screening mammogram was performed less than 1 month ago. Patient History: Menarche at age 13. First Full-Term at age 22. Hysterectomy at age 41. Postmenopausal. Maternal cousin had breast cancer, age 40. Maternal aunt had breast cancer, age 70. Risk Values: Beatrice 5 year model risk: 1.0%. NCI Lifetime model risk: 7.7%. Prior Study Comparison: 11/19/2021 Bilateral Screening Mammogram, [facility]. 11/22/2022 Bilateral MG screening mammo w CAD, [facility]. 12/05/2023 Bilateral MG 3D screening mammo w/cad, [facility]. Tissue Density: Left: The breast tissue is heterogeneously dense. This may lower the sensitivity of mammography. Findings: Analyzed By CAD. Density in question does not persist. Precautionary six-month follow-up mammography is advised. Overall Assessment: Probably benign, BI-RAD 3 Management: Diagnostic Mammogram of the left breast in 6 months. . Results were given to the patient verbally at the time of exam. Patient should continue monthly self-breast exams. A clinical breast exam by your physician is recommended on an annual basis. This exam should not preclude additional follow-up of suspicious palpable abnormalities. Note on Beatrice scores and lifetime risk: 1. A Beatrice score greater than 3% is considered moderate risk. If this is the case, consider specialist referral to assess eligibility for a risk reducing agent. 2. If overall lifetime risk for the development of breast cancer is 20% or higher, the patient may qualify for future screening with alternating mammogram and breast MRI. Electronically signed and approved by: Truong Bonilla M.D. Radiologis
== END | disposition home or self-care (01) ==
LOC: RADMAMWWP 12:56
PROVIDERS: ATTEND Family Medicine
DX: R92.332 Mammographic heterogeneous density, left breast (principal); R92.8 Other abnormal and inconclusive findings on diagnostic imaging of breast; Z78.0 Asymptomatic menopausal state; Z80.3 Family history of malignant neoplasm of breast
CPT/HCPCS: 77061; 77065

== ENCOUNTER → 2024-04-24 | Outpatient (CLI) | payer BC, OTHER ==
--- NOTE | 2024-04-25 13:39 | US ---
EXAMINATION TYPE: US carotid duplex BILAT DATE OF EXAM: COMPARISON: CLINICAL INDICATION: Female, 54 years old with history of I10 Hypertension; TECHNIQUE: Carotid duplex ultrasound examination. Indirect Doppler criteria was utilized. FINDINGS: EXAM MEASUREMENTS: RIGHT: Peak Systolic Velocity (PSV) cm/sec ----- Right CCA: 86.9 ----- Right ICA: 89.5 ----- Right ECA: 115.7 ICA/CCA ratio: 1.0 RIGHT: End Diastole cm/sec ----- Right CCA: 24.3 ----- Right ICA: 21.7 ----- Right ECA: 23.6 LEFT: Peak Systolic Velocity (PSV) cm/sec ----- Left CCA: 86.6 ----- Left ICA: 89.8 ----- Left ECA: 115.7 ICA/CCA ratio: 1.0 LEFT: End Diastole cm/sec ----- Left CCA: 30.0 ----- Left ICA: 28.4 ----- Left ECA: 22.0 VERTEBRALS (direction of flow): Right Vertebral: Antegrade Left Vertebral: Antegrade Rhythm: Normal IMPRESSION: No suspicious changes to suggest flow-limiting stenosis based on velocity. Criteria for Assigning % of Stenosis / Diameter reduction (Estimation based on the indirect measurements of the internal carotid artery velocities (ICA PSV). 1. Normal (no stenosis)=ICA PSV < 125 cm/s: ratio < 2.0: ICA EDV<40 cm/s. 2. Less than 50% stenosis=ICA PSV < 125 cm/s: ratio < 2.0: ICA EDV<40 cm/s. 3. 50 to 69% stenosis=ICA PSV of 125 to 230 cm/s: ration 2.0 ? 4.0: ICA EDV 40-100 cm/s. 4. Greater than 70% stenosis to near occlusion= ICA PSV > 230 cm/s: ratio > 4.0: ICA EDV > 100 cm/s. 5. Near occlusion= ICA PSV velocities may be low or undetectable: variable ratio and ICA EDV. 6. Total occlusion=unable to detect flow.
== END | disposition home or self-care (01) ==
LOC: RADUSWWP 07:53
PROVIDERS: ATTEND Internal Medicine Interventional Cardiology
DX: I10 Essential (primary) hypertension (principal)
CPT/HCPCS: 93880

== ENCOUNTER → 2024-07-12 | Outpatient (CLI) | payer BC, OTHER ==
--- NOTE | 2024-07-12 14:58 | MM ---
Reason for Exam: Follow-up at short interval from prior study. Last screening mammogram was performed 8 month(s) ago. Patient History: Menarche at age 13. First Full-Term at age 22. Hysterectomy at age 41. Postmenopausal. Maternal cousin had breast cancer, age 40. Maternal aunt had breast cancer, age 70. Risk Values: Beatrice 5 year model risk: 1.0%. NCI Lifetime model risk: 7.5%. Prior Study Comparison: 11/22/2022 Bilateral MG screening mammo w CAD, [facility]. 12/05/2023 Bilateral MG 3D screening mammo w/cad, [facility]. 12/13/2023 Left MG 3D work up w/cad , [facility]. Tissue Density: Left: The breasts are heterogeneously dense, which may obscure small masses. Findings: Analyzed By CAD. The previously seen asymmetric density outer aspect of the left breast review of middle depth has not persisted. No significant change from prior exams. Findings compatible with superimposition shadow. Overall Assessment: Benign, BI-RAD 2 Management: Screening Mammogram of both breasts in 6 months. Back on schedule. Results were given to the patient verbally at the time of exam. Patient should continue monthly self-breast exams. A clinical breast exam by your physician is recommended on an annual basis. This exam should not preclude additional follow-up of suspicious palpable abnormalities. Note on Beatrice scores and lifetime risk: 1. A Beatrice score greater than 3% is considered moderate risk. If this is the case, consider specialist referral to assess eligibility for a risk reducing agent. 2. If overall lifetime risk for the development of breast cancer is 20% or higher, the patient may qualify for future screening with alternating mammogram and breast MRI. Electronically signed and approved by: Jocelyn Coy M.D. Radiologist
== END | disposition home or self-care (01) ==
LOC: RADMAMWWP 14:28
PROVIDERS: ATTEND Family Medicine
DX: R92.8 Other abnormal and inconclusive findings on diagnostic imaging of breast
CPT/HCPCS: 77061; 77065

== ENCOUNTER → 2024-09-07 | Outpatient (CLI) | payer BC, OTHER ==
--- NOTE | 2024-09-07 11:23 | CT ---
EXAMINATION TYPE: CT brain wo con DATE OF EXAM: 09/07/2024 COMPARISON: None CLINICAL INDICATION: Female, 54 years old with history of I67.9 CEREBROVASCULAR DISEASE, UNSPECIFIED I65.2; PHH, pt states she had had 2 episodes where she has lost vision in her left eye for a few hour s, ocular migraine vs cerebrovascular issues. CT DLP: 1727.20 mGycm Automated exposure control for dose reduction was used. Findings: The ventricles, basal cisterns and sulci over the convexities are within normal limits and there is n o mass effect or shift of midline structures. No abnormal density is seen throughout the brain parenchyma and there is no acute intra or extra-axia l hemorrhage. The posterior fossa including the brainstem, fourth ventricle and cerebellar pontine angles appear no rmal. Intraorbital contents appear normal and symmetric. Mild chronic inflammatory changes in the maxillary and ethmoid air cells. The mastoid air cells are w ell aerated. The calvarium is intact. IMPRESSION: There is no acute bleed or mass effect. [facility], Workstation: [id number] 09/07/2024 11:20 AM
--- NOTE | 2024-09-07 11:30 | CT ---
EXAMINATION TYPE: CT angio head neck DATE OF EXAM: 09/07/2024 COMPARISON: None CLINICAL INDICATION: Female, 54 years old with history of I67.9 CEREBROVASCULAR DISEASE, UNSPECIFIED I65.2; PHH, pt states she had had 2 episodes where she has lost vision in her left eye for a few hour s, ocular migraine vs cerebrovascular issues. TECHNIQUE: CTA scan of the head and neck is performed with IV Contrast, patient injected with 65ml m L of Isovue 370, axial images are obtained, coronal and sagittal reformatted images are reviewed. 3D reconstructed images are created on an independent workstation and reviewed. CT DLP: 1727.[address] CTDI: mGy Automated exposure control for dose reduction was used. NASCET criteria was used in interpretation of this exam FINDINGS: The brachiocephalic origins are widely patent and no significant stenosis. There is no significant stenosis of the common or internal carotid arteries within the neck. There is no stenosis of the vertebral arteries. Intracranially, there is no stenosis, segmental occlusion, sizable aneurysm sac or vascular malformat ion. IMPRESSION:. No significant abnormality seen. NASCET criteria was used in interpretation of this exam? [facility], , 09/07/2024 11:27 AM
== END | disposition home or self-care (01) ==
LOC: RADCTMAIN 09:50
PROVIDERS: ATTEND Psychiatry & Neurology Neurology
DX: I67.9 Cerebrovascular disease, unspecified (principal); I65.29 Occlusion and stenosis of unspecified carotid artery
CPT/HCPCS: 70496; 70450; 70498; Q9967

== ENCOUNTER → 2024-11-26 | Outpatient (CLI) | payer BC, OTHER | END | disposition home or self-care (01) | LOC: RADCTMAIN 15:58 | PROVIDERS: ATTEND Family Medicine | DX: Z53.9 Procedure and treatment not carried out, unspecified reason (principal) ==

== ENCOUNTER → 2025-01-18 | Outpatient (CLI) | payer BC, OTHER ==
--- NOTE | 2025-01-18 13:44 | CT ---
EXAMINATION TYPE: CT angio chest CT DLP: 1451.0 mGycm, Automated exposure control for dose reduction was used. DATE OF EXAM: 01/18/2025 1:29 PM COMPARISON: CTA thoracoabdominal pelvic aorta 06/13/2023, CT chest 08/24/2020 CLINICAL INDICATION:Female, 54 years old with history of I71.20 THORACIC AORTIC ANEURYSM, WITHOUT RUP TURE,; THORACIC AORTIC ANEURYSM, WITHOUT RUPTURE TECHNIQUE/CONTRAST: CTA scan of the thorax is performed without and with IV Contrast, patient injected with 100ml mL of I sovue 370. 3D reconstructed images are created on an independent workstation and reviewed.. FINDINGS: Lungs/Pleura: No evidence of focal consolidation, pleural effusion or pneumothorax. Few right upper l obe calcified granulomas. Airway: Large airways are patent. Heart: Size within normal limits.No pericardial effusion Mild coronary artery calcifications present. Vasculature: Mild atherosclerotic calcification of the aorta and its branches. Conventional three-ves isaias aortic arch. No evidence of intramural hematoma or dissection. The aortic root measures up to 2.9 cm. The ascending thoracic aorta measures up to 3.9 cm, previously 4.1 cm. The descending thoracic a chely measures 2.1 cm. Mild atherosclerotic plaque at the origin of celiac axis without significant st enosis. The SMA is widely patent. The bilateral renal arteries are widely patent. Mediastinum: No evidence of adenopathy. Musculoskeletal: No acute osseous abnormalities Soft Tissues: Unremarkable. Lower neck: No significant findings. Upper Abdomen: Couple of splenic calcification granulomas. Gallbladder is surgically absent. IMPRESSION: Mild ectasia of the ascending thoracic aorta measuring 3.9 cm, previously 4.1 cm. No evidence for int racranial hematoma or dissection. [facility], , 01/18/2025 1:42 PM
== END | disposition home or self-care (01) ==
LOC: RADCTMAIN 12:54
PROVIDERS: ATTEND Internal Medicine Interventional Cardiology
DX: I77.810 Thoracic aortic ectasia (principal); D73.89 Other diseases of spleen
CPT/HCPCS: 71275; Q9967

== ENCOUNTER → 2025-03-08 | Outpatient (CLI) | payer BC, OTHER ==
--- NOTE | 2025-03-09 15:15 | BD ---
EXAMINATION TYPE: Axial Bone Density DATE OF EXAM: 03/08/2025 CLINICAL HISTORY: 54 years old Female. ICD-10 CODE: M85.9 DISORDER OF BONE DENSITY AN , Additional History: Height: 68 Weight: 263.5 FRAX RISK QUESTIONS: Alcohol (3 or more units per day): no Family History (Parent hip fracture): no Glucocorticoids (More than 3mos): no (Ex: prednisone, prednisolone, methylprednisolone, dexamethasone, and hydrocortisone). History of Fracture in Adulthood: yes Secondary Osteoporosis: 1. Type 1 Diabetes: no 2. Hyperthyroidism: no 3. Menopause before 45: yes 4. Malnutrition: no 5. Chronic liver disease: no Rheumatoid Arthritis: no Current Tobacco Use: no RISK FACTORS HISTORY OF: Surgery to Spine/Hip(right/left)/Wrist (right/left): no EXAM MEASUREMENTS: Bone mineral densitometry was performed using the [employer] System. Bone mineral density as measured about the Lumbar spine is: ----- L1-L4(G/cm2): 1.169 T Score Values are as follows: ----- L1: -0.3 ----- L2: -1.1 ----- L3: 0.7 ----- L4: -0.1 ----- L1-L4: -0.1 Z Score Values are as follows: ----- L1: -0.6 ----- L2: -1.5 ----- L3: -0.3 ----- L4: -0.5 ----- L1-L4: -0.5 Bone mineral density has: increased 1.6 % since study of: 11.22.2022 Bone mineral density about the R hip (g/cm2): 0.962 Bone mineral density about the L hip (g/cm2): 0.958 T Score values are as follows: -----R Neck: -1.3 -----L Neck: -1.4 -----R Total: -0.4 -----L Total: -0.4 Z Score values are as follows: -----R Neck: -1.0 -----L Neck: -1.1 -----R Total: -0.6 -----L Total: -0.6 Bone mineral density has: decreased -1.4 % since study of: 1.16.2022 FRAX%s: The graph provided illustrates a 10.1% chance for a major osteoporotic fx and a 0.7% chance f or the hips probability for fx in 10 years time. IMPRESSION: Osteopenia (T Score between -2.5 and -1). There is slightly increased risk of fracture and the patient may be considered for treatment. Re-Screen 2-5 years. NOTE: T-SCORE=SD OF THE YOUNG ADULT MEAN. [facility], Workstation: [facility], 03/09/2025 3:13 PM
--- NOTE | 2025-03-11 08:05 | MM ---
Reason for Exam: Screening (asymptomatic). Last mammogram was performed 1 year(s) and 4 month(s) ago. Patient History: Menarche at age 13. First Full-Term at age 22. Hysterectomy at age 41. Postmenopausal. Patient has history of breast feeding. Patient used Hormonal Contraceptives for 8 years. Maternal cousin had breast cancer, age 40. Maternal aunt had breast cancer, age 70. Risk Values: Beatrice 5 year model risk: 1.0%. NCI Lifetime model risk: 7.5%. Prior Study Comparison: 12/05/2023 Bilateral MG 3D screening mammo w/cad, [facility]. 12/13/2023 Left MG 3D work up w/cad LT, [facility]. 07/12/2024 Left MG 3D diag mammo w/cad LT, [facility]. Tissue Density: The breasts are heterogeneously dense, which may obscure small masses. Findings: Analyzed By CAD. Right breast: There is no suspicious group of microcalcifications or new suspicious mass. Left breast: There is no suspicious group of microcalcifications or new suspicious mass. Overall Assessment: Negative, BI-RAD 1 Management: Screening Mammogram of both breasts in [address] [facility] will attempt to contact patient to return for supplemental views and ultrasound if indicated. Patient should continue monthly self-breast exams. A clinical breast exam by your physician is recommended on an annual basis. This exam should not preclude additional follow-up of suspicious palpable abnormalities. Note on Beatrice scores and lifetime risk: 1. A Beatrice score greater than 3% is considered moderate risk. If this is the case, consider specialist referral to assess eligibility for a risk reducing agent. 2. If overall lifetime risk for the development of breast cancer is 20% or higher, the patient may qualify for future screening with alternating mammogram and breast MRI. [facility], , 03/11/2025 8:02 AM. Electronically signed and approved by: Gabriel Mena DO
== END | disposition home or self-care (01) ==
LOC: RADMAMWWP 15:30
PROVIDERS: ATTEND Family Medicine
DX: Z12.31 Encounter for screening mammogram for malignant neoplasm of breast (principal); M85.89 Other specified disorders of bone density and structure, multiple sites; R92.333 Mammographic heterogeneous density, bilateral breasts; Z78.0 Asymptomatic menopausal state; Z92.0 Personal history of contraception; Z80.3 Family history of malignant neoplasm of breast
CPT/HCPCS: 77063; 77067; 77080